=== PATIENT | male | born 1940 | race Caucasian/White ===

== ENCOUNTER 2017-05-25 06:25 | Inpatient (IN) | payer MEDICARE ==
--- NOTE | 2017-05-23 09:48 | HP ---
HISTORY OF PRESENT ILLNESS: Ms. Syed is a 77-year-old male that presents with low back pain that ra diates into the right buttocks. He has had weakness in the right EHL compared to the left side and h as had circumferential numbness up to his mid calf and below the knee. He is unable to walk more eagle n 100 yards without having to sit down due to the pain in his low back and his legs that develops whe n he is standing and walking. The pain is made worse with walking and somewhat better with sitting d own and bending forward. He has had a pacemaker and defibrillator placed. He has had [address] Delgado and completed physical therapy that did not seem to help his symptoms. REVIEW OF SYSTEMS: Ten-point review of systems completed and is otherwise negative unless stated in the above HPI. PAST MEDICAL HISTORY: Cardiac history. PAST SURGICAL HISTORY: Heart valve transplant 2017. HOSPITALIZATIONS: Surgeries. FAMILY HISTORY: Father is . Mother is . Siblings are . SOCIAL HISTORY: The patient is a former smoker, 1 pack per day for 6 years. He is and has 4 children. MEDICATIONS: Taking Plavix 75 mg 1 tablet orally once a day. Medication list reviewed with the doug ent. ALLERGIES: No known drug allergies. PHYSICAL EXAMINATION: HEENT: Normocephalic, atraumatic. Hearing intact. Moist mucous membranes. Trachea is midline. EYES: Pupils are equal and reactive to light. Extraocular muscles are intact. Sclerae is white, no nicteric. PSYCHIATRIC: Normal mood and affect. CARDIOVASCULAR/PULMONARY: No cyanosis or clubbing noted. Intact pedal pulses bilaterally. MUSCULOSKELETAL: 5/5 strength in bilateral iliopsoas, quadriceps, hamstrings, right tibialis anterio r and extensor hallucis longus. Sensory deficits, worse in the right L5 dermatome. He is tender to palpation in the midline lumbar spine. RESPIRATORY: Even respirations, good effort in all lung mondragon, sound clear with no wheezing or crac kles. NEUROLOGIC: Gait and station are normal. Motor exam: There is normal strength in the iliopsoas, qu adriceps, hamstrings, EHL, gastroc and toe flexors. Sensory exam is in stocking distribution, senso ry loss, both legs. IMAGING: Myelogram stenosis, severe at L2-L5 and there is grade I-II slip at L4-5. There is right L 5 pars fractures, old, but no sign of instability there. Flexion, extension, no instability at L5-S1, motion about 1 mm at L4-L5. IMPRESSION: 1. Neurogenic claudication. 2. Spondylolisthesis of the lumbar region. 3. Osseous and or sublux stenosis of intervertebral foramina of the lumbar region. 4. 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 PLAN: We talked about surgery is a more permanent treatment for his stenosis and subluxation. Dr. Summer ivey offered a laminectomy L2-L5 with TLIF at L4-L5 and we may need to add TLIF at L5-S1 if there and significant intraoperative instability from the pars fracture. Informed consent was given. We discussed the indications, risks, benefits, alternatives, and expected results from surgery. The ris ks discussed included, but were not limited to bleeding, infection, CSF leak, nerve damage, weakness, incontinence, cauda equina injury, arachnoiditis, paralysis, ventilator dependence, wheelchair depen dence, loss of vision, hardware misplacement, cardiopulmonary complications of anesthesia or . Long-term complications discussed included, but were not limited to degeneration of surrounding disks and future surgery. He understands the risk and is willing to proceed with the surgery.
[2017-05-25 07:50] LABS: #Eosinphils 0.2 thou/uL (0.0-0.7); #Lymphocytes 0.7 thou/uL (1.20-3.40); #Monocytes 0.5 thou/uL (0.11-0.59); %Basophils 0.5 % (0.0-1.0); %Eosinophils 2.9 % (0.0-10.0); %Lymphocytes 10.3 % (21.0-51.0); %Monocytes 8.2 % (0.0-10.0); Hematocrit 37.5 % (42.0-52.0); Mean Platelet Volume 7.3 fL (7.4-10.4); Red Blood Cell (RBC) Count 3.86 mill/uL (4.70-6.10); White Blood Cell (WBC) Count 6.4 thou/uL (4.8-10.8)
[2017-05-25 07:57] LABS: PTT 29.2 SEC (22.9-36.1)
[2017-05-25 07:58] LABS: Prothrombin Time 13.9 SEC (12.0-14.7)
[2017-05-25 08:16] LABS: Anion Gap 11 mmol/L (10-20); BUN (Urea Nitrogen) 22 mg/dL (8.4-25.7); Calc. Creatinine Clearance 73 mL/min (70-130); Calcium 9.3 mg/dL (7.8-10.44); Carbon Dioxide 21 mmol/L (23-31); Chloride 110 mmol/L (98-107); Estimated GFR-MDRD 71
[2017-05-25] MEDS ORDERED: Sodium Chloride 0.9% 20 ML ONE (08:27)
[2017-05-25] MEDS ORDERED: Thrombin 5000 UNITS/5 ML VIAL ONE (08:27)
[2017-05-25] MEDS ORDERED: Bupivacaine/Epinephrine 0.25% 30 ML VIAL ONE (08:27)
[2017-05-25] MEDS ORDERED: CEFAZOLIN/Water 2 GM/20 ML SYRINGE ONE (09:10)
[2017-05-25] MEDS ORDERED: Phenylephrine 10 MG/NS 250 ML 250 ML ONE (09:11)
[2017-05-25] MEDS ORDERED: Albumin 5% 500 ML ONE (09:11)
[2017-05-25] MEDS ORDERED: Fentanyl 250 MCG/5 ML VIAL ONE (09:19)
[2017-05-25] MEDS ORDERED: HYDROmorphone 2 MG/ML VIAL SLOW IVP PRN (11:51)
[2017-05-25] MEDS ORDERED: Morphine Sulfate 2 MG/ML SYRINGE SLOW IVP PRN (11:51)
[2017-05-25] MEDS ORDERED: Promethazine HCl 25 MG/ML VIAL IM PRN (11:51)
[2017-05-25] MEDS ORDERED: Promethazine HCl 25 MG/ML VIAL SLOW IVP PRN (11:51)
[2017-05-25] MEDS ORDERED: Meperidine HCl/PF 25 MG/ML VIAL SLOW IVP PRN (11:51)
[2017-05-25] MEDS ORDERED: Ondansetron HCl/PF 4 MG/2 ML Vial IVP PRN (11:51)
[2017-05-25] MEDS ORDERED: Fentanyl 100 MCG/2 ML VIAL ONE (12:33)
[2017-05-25] MEDS ORDERED: Morphine 4 MG/ML VIAL SLOW IVP PRN (15:15)
[2017-05-25] MEDS ORDERED: Morphine 2 mg/2ml in 0.9% NaCl PF SYRINGE SLOW IVP PRN (15:15)
[2017-05-25] MEDS ORDERED: Lidocaine 1% PF 5 ML VIAL ONE (15:30)
[2017-05-25] MEDS ORDERED: Metoclopramide HCl 10 MG/2 ML VIAL ONE (15:30)
[2017-05-25] MEDS ORDERED: Dexamethasone 20 MG/5 ML VIAL ONE (15:30)
[2017-05-25] MEDS ORDERED: Vecuronium 10 MG VIAL ONE (15:30)
[2017-05-25] MEDS ORDERED: Ondansetron HCl/PF 4 MG/2 ML Vial ONE (15:30)
[2017-05-25] MEDS ORDERED: Propofol 200 MG/20 ML VIAL ONE (15:30)
[2017-05-25] MEDS ORDERED: Non-Formulary Item 1 EACH (Sitagliptin Phos/Metformin Hcl [Janumet] 1 TABLET) PO SCH (17:00)
[2017-05-25] MEDS: Sodium Chloride 0.9% 1,000 ML IV SCH (17:24)
[2017-05-25 17:56] VITALS: BMI 27.3
[2017-05-25] MEDS ORDERED: CEFAZOLIN/Water 2 GM/20 ML SYRINGE SLOW IVP SCH (18:00)
[2017-05-25] MEDS: metFORMIN 500 MG TAB PO SCH (18:03)
[2017-05-25] MEDS: Alogliptin Benzoate 6.25 MG TABLET PO SCH (18:03)
[2017-05-25] MEDS: Acetaminophen/Codeine 30-300mg Tablet PO PRN (18:04)
--- NOTE | 2017-05-25 18:10 | ULT ---
ULTRASOUND WITH DOPPLER DUPLEX VENOUS LOWER EXTREMITY BILATERAL 05/25/17 CPT: 16474 ICD-10-PCS: B54D HISTORY: Edema, recent surgery. TECHNIQUE: Color flow Doppler, spectral waveform analysis of pulsed Doppler, and marie-scale imaging with magali arthur and augmentation, were used to evaluate the bilateral common femoral, femoral, popliteal, social worker delinquency prevention ior tibial, and superficial femoral, veins; and the proximal portions of the profunda femoral and gre ater saphenous, veins. FINDINGS: Appropriate compressibility and flow within the imaged deep vein system of each lower extremity. IMPRESSION: No DVT. POS: GARRY
--- NOTE | 2017-05-25 18:53 | OP ---
DATE OF SURGERY: 05/25/2017 SURGEON: Jose Schneider M.D. PRIMARY HEALTH CARE NURSE: Ambrocio Pineda PA-C. PREOPERATIVE INDICATION: Treat pain, prevent neurological deterioration. PREOPERATIVE DIAGNOSES: Multilevel lumbar stenosis, lumbar spondylolisthesis L4-L5. POSTOPERATIVE DIAGNOSES: Multilevel lumbar stenosis, lumbar spondylolisthesis L4-L5. OPERATIVE PROCEDURE: Decompressive laminectomy, medial facetectomy, foraminotomy at L2-L3, L3-L4, L4 -L5, transforaminal lumbar interbody arthrodesis L4-L5, placement of intervertebral biomechanical dev ice L4-L5, pedicle screw and camryn instrumentation L4-L5, local morselized autograft, morselized allogr aft, posterolateral arthrodesis L4-L5. PREOPERATIVE MEDICATION: Ancef 2 grams IV. DRAIN NUMBER: Zero. DRAIN TYPE: None. OPERATIVE DICTATION: The patient was brought to the operating room. General endotracheal anesthesia was induced. The patient was positioned prone on the Orville frame with appropriate padding for the chest and hips. A lateral fluoro radiograph was used to plan our incision. The lumbar skin was francesco rilely prepped and draped. We opened with a 10 blade knife and controlled bleeding with bipolar and monopolar cautery. We used monopolar cautery to dissect through the subcutaneous tissues to the thor acodorsal fascia. We incised the fascia in the midline and reflected the paraspinal muscles off the spinous process and lamina of L2, L3, L4, and L5. A self-retaining retractor was placed. A lateral fluoro radiograph confirmed the levels upon which we were operating. We then carried our dissection over the L3-L4 and L4-L5 facets to expose the L4 and L5 transverse processes bilaterally. We placed a clamp on the L5 spinous process and 1 on the sacrum and tried to move these independently. They ap peared solidly fused. There was absolutely no motion on the right where pars defect was noted on the CT scan. This level of stability was reassuring that instrumentation would not be needed at lumbosa cral interspace. We brought an Adson rongeur into the field. We removed the spinous process of L2, L3, L4 and the superior portion of L5. We thinned the laminae and then used a Kerrison rongeur to fa shion a laminectomy from the top of L5 to the L2 pedicles. We widened our laminectomy defect until w e were flush with the pedicles at L2, L3, L4, and L5. We undermined the lateral recesses before perf orming medial facetectomies. With the exiting nerve roots, we performed foraminotomies. This was do ne over the L2, L3, L4, and L5 nerve roots. With our decompression secured, we turned our attention to arthrodesis at the L4-L5 interspace for spondylolisthesis. We removed the entire facet joint at L 4-L5 on the right side. Through this facetectomy, we widely opened the foramen. We accessed the int ervertebral disk and incised it with an 11 blade knife. I removed disk contents using curettes and r ongeurs, and then prepared the endplates for grafting. We measured the height of the interspace to 1 1 mm. With curets we removed the cartilaginous cap from the endplates. Our laminectomy bone was car efully morcellized on the back table after soft tissue was removed and this morselized bone was added to demineralized bone matrix as our fusion substrate. Substrate was packed into an 11 mm PEEK graft . The PEEK graft was advanced into the L4-L5 interspace under radiographic guidance to the appropria te depth. We turned our attention to pedicle screw instrumentation. Using bony anatomic landmarks, palpation of the medial portion of the pedicles and a lateral fluoro r adiograph as a guide, we chose entry points for L4 and L5 pedicles bilaterally. We drilled the entry points and used the bone awl to find our trajectory through the pedicles into the vertebral bodies. We tapped the trajectories. We probed the trajectories and found them completely encased in bone. A 6.5 mm diameter screws were placed. With the four pedicle screws in place, we generated 360 degree image set with isocenter C-arm. This confirmed adequate positioning of our pedicle screw instrument ation. We irrigated copiously with bacitracin irrigation. We then decorticated the transverse proce sses of L4 and L5 bilaterally. Over the decorticated bone, we left demineralized bone matrix and mor selized autograft as our posterolateral fusion substrate. We made sure one more time that the all 4 nerve roots were still decompressed in the L4-L5 foramina. Rods were placed into the screw heads and caps were tightened over the rods. We used gentle compression across the interspace to keep our int erbody graft in place. Using a fjmzyl-qiobdqz-oiaytb mechanism, we ensured adequate tightness. We r econfirmed our adequate foraminal decompression. Vancomycin powder was added to the wound and we shobha sed the wound in anatomic layers. We applied a sterile dressing. This was a clean case and no conta mination.
[2017-05-25] MEDS: Carvedilol 3.125 MG TAB PO SCH (20:39)
[2017-05-25] MEDS: CEFAZOLIN/Water 2 GM/20 ML SYRINGE SLOW IVP SCH (20:41)
[2017-05-25] MEDS: Cyclobenzaprine 10 MG TAB PO PRN (20:41)
[2017-05-25] MEDS: Lisinopril 5 MG TAB PO SCH (20:43)
[2017-05-26] MEDS: CEFAZOLIN/Water 2 GM/20 ML SYRINGE SLOW IVP SCH (04:25)
[2017-05-26] MEDS: Sodium Chloride 0.9% 1,000 ML IV SCH ×2 (04:26→17:04)
[2017-05-26] MEDS: Carvedilol 3.125 MG TAB PO SCH ×2 (08:22→20:06)
[2017-05-26] MEDS: Lisinopril 5 MG TAB PO SCH ×2 (08:23→20:07)
[2017-05-26] MEDS: metFORMIN 500 MG TAB PO SCH ×2 (08:37→16:58)
[2017-05-26] MEDS: Alogliptin Benzoate 6.25 MG TABLET PO SCH ×2 (08:37→16:58)
[2017-05-26] MEDS: Acetaminophen/Codeine 30-300mg Tablet PO PRN (08:40)
--- NOTE | 2017-05-26 12:07 | PRG ---
DATE OF SERVICE: 05/26/2017 SUBJECTIVE: Mr. Syed is postoperative day #1 from lumbar decompression and fusion. He states his l eg pain has certainly improved compared to before surgery and he has even worked with rehabilitation today. His strength is good in his lower extremities. An ultrasound of the lower extremities is neg ative for DVT. We will continue to work towards postoperative recovery.
[2017-05-26] MEDS: Cyclobenzaprine 10 MG TAB PO PRN ×2 (16:58→23:21)
[2017-05-27] MEDS: Acetaminophen/Codeine 30-300mg Tablet PO PRN ×3 (05:59→17:04)
[2017-05-27] MEDS: Sodium Chloride 0.9% 1,000 ML IV SCH ×2 (06:00→18:27)
[2017-05-27] MEDS: Alogliptin Benzoate 6.25 MG TABLET PO SCH ×2 (08:39→17:17)
[2017-05-27] MEDS: metFORMIN 500 MG TAB PO SCH ×2 (08:39→17:17)
[2017-05-27] MEDS: Carvedilol 3.125 MG TAB PO SCH ×2 (08:40→21:09)
[2017-05-27] MEDS: Lisinopril 5 MG TAB PO SCH ×2 (08:40→20:45)
[2017-05-27] MEDS ORDERED: Dextrose 5% in Water 1,000 ML IV PRN (12:44)
[2017-05-27] MEDS ORDERED: HumaLOG 300 UNITS/3 ML VIAL SC PRN (12:44)
[2017-05-27] MEDS ORDERED: Dextrose 50% Abboject 50 ML SYRINGE SLOW IVP PRN (12:44)
--- NOTE | 2017-05-27 13:02 | PRG ---
DATE OF SERVICE: 05/27/2017 This is 50 minute subsequent inpatient progress note. SUBJECTIVE: Mr. Syed is now postoperative day #2 having undergone posterior lumbar fusion with Dr. Schneider. The patient states he is doing well postoperatively. He states that he has been up walki ng some. His pain is controlled with oral medications. He does occasionally have some spasms onto t he left hip. He has been tolerating a diet and has been voiding. The patient remains at neurologic baseline with good strength in the bilateral lower extremities and has had no issues with his incisio n according to our nursing staff. The patient continues to improve. His issue now remains with disc harge planning. Case management has been ordered. The patient would like to go to care home [facility] in [place]. We will await arrangements for this. I have consulted medical services regar ding patient's blood sugars and they have remained relatively stable. Please call with any questions or changes in patient's neurologic status. Otherwise, Dr. Schneider will return in the morning and again we are waiting for discharge planning.
[2017-05-27] MEDS: HumaLOG 300 UNITS/3 ML VIAL SC PRN (15:14)
--- NOTE | 2017-05-27 15:36 | PDOC.PN ---
- Subjective Encounter Start Date: 05/27/17 Encounter Start Time: 15:34 Subjective: feels well. no muscle weakness or paraesthesias -: s/p Lumbar lamniectomy. -: IM team consulted for medical management of DM2 - Objective MAR Reviewed: Yes Vital Signs & Weight: Vital Signs (12 hours) Temp Pulse Resp BP BP Pulse Ox 05/27/17 12:10 98.5 F 70 16 100/60 96 05/27/17 08:40 75 111/58 L 05/27/17 08:10 98.3 F 71 18 115/57 L 97 05/27/17 07:15 98.8 F 75 16 05/27/17 04:29 98.8 F 75 16 111/58 L 96 Weight Weight 185 lb I&O: 05/26/17 05/27/17 05/28/17 06:59 06:59 06:59 Intake Total 1150 2650 240 Output Total 550 875 Balance 600 1775 240 Result Diagrams: 05/25/17 07:43 05/25/17 07:43 Additional Labs: Accuchecks 05/27/17 05/27/17 05/26/17 11:17 05:45 20:23 POC Glucose 169 H 154 H 209 H Phys Exam - Physical Examination Constitutional: NAD HEENT: PERRLA, moist MMs, sclera anicteric, oral pharynx no lesions Neck: no nodes, no JVD, supple, full ROM Respiratory: no wheezing, no rales, no rhonchi, wheezing present, clear to auscultation bilateral Cardiovascular: RRR, no significant murmur Gastrointestinal: soft, non-tender, no distention, positive bowel sounds Musculoskeletal: no edema, pulses present Neurological: non-focal, normal sensation, moves all 4 limbs Psychiatric: normal affect, A&O x 3 Skin: no rash Dx/Plan (1) DM2 (diabetes mellitus, type 2) Status: Chronic Qualifiers: Diabetes mellitus complication status: with hyperglycemia Diabetes mellitus penitentiary insulin use: without penitentiary use Qualified Code(s): E11.65 - Type 2 diabetes mellitus with hyperglycemia (2) CAD (coronary artery disease) Code(s): I25.10 - ATHSCL HEART DISEASE OF [place] CORONARY ARTERY W/O ANG PCTRS Status: Chronic Comment: s/p CABG and then cardiac stenting (3) S/P AVR (aortic valve replacement) Code(s): Z95.2 - PRESENCE OF PROSTHETIC HEART VALVE Status: Chronic Comment : Bioprosthetic per patient (4) S/P lumbar laminectomy Code(s): Z98.890 - OTHER SPECIFIED POSTPROCEDURAL STATES Status: Acute (5) Cardiomyopathy Code(s): I42.9 - CARDIOMYOPATHY, UNSPECIFIED Status: Chronic Comment: s/p AICD per patient - Plan respiratory therapy, incentive spirometry, out of bed/ambulate, DVT proph w/SCDs Add Insulin sliding scale as blood sugar still high despite Janumet.Accuche -: pt requesting regular diet.will change.Pt made awarre of hyperglycemia risk -: cont home meds as started by primary team.Hemodynamically stable. -: check labs in am. -: IM team will follow * . Review of Systems - Review of Systems Constitutional: negative: Fever, Chills, Sweats, Weakness, Malaise, Other ENT: negative: Ear Pain, Ear Discharge, Nose Pain, Nose Discharge, Nose Congestion, Mouth Pain, Mouth Swelling, Throat Pain, Throat Swelling, Other Respiratory: negative: Cough, Dry, Shortness of Breath, Hemoptysis, SOB with Excertion, Pleuritic Pain, Sputum, Wheezing Cardiovascular: negative: Chest Pain, Palpitations, Orthopnea, Paroxysmal Noc. Dyspnea, Edema, Light Headedness, Other Gastrointestinal: negative: Nausea, Vomiting, Abdominal Pain, Diarrhea, Constipation, Melena, Hematochezia, Other Genitourinary: negative: Dysuria, Frequency, Incontinence, Hematuria, Retention , Other Musculoskeletal: negative: Neck Pain, Shoulder Pain, Arm Pain, Back Pain, Hand Pain, Leg Pain, Foot Pain, Other Neurological: negative: Weakness, Numbness, Incoordination, Change in Speech, Confusion, Seizures, Other - Medications/Allergies Allergies/Adverse Reactions: Allergies Allergy/AdvReac Type Severity Reaction Status Date / Time diphenhydramine Allergy mood Verified 05/24/17 13:05 [From Benadryl] changes [id number] Reductase Allergy hives, Verified 05/24/17 13:05 Inhibitor itching Medications: Current Medications Acetaminophen/Codeine Phosphate (Tylenol #3) 1 tab PO Q3H PRN PRN Reason: Mild Pain (1-3) Last Admin: 05/27/17 05:59 Dose: 1 tab Acetaminophen/Codeine Phosphate (Tylenol #3) 2 tab PO Q3H PRN PRN Reason: Moderate Pain (4-6) Last Admin: 05/27/17 09:35 Dose: 2 tab Alogliptin Benzoate (Alogliptin) 12.5 mg PO BID-[facility] Last Admin: 05/27/17 08:39 Dose: 12.5 mg Amiodarone HCl (Cordarone) 200 mg PO QAM [facility] Last Admin: 05/27/17 08:39 Dose: 200 mg Carvedilol (Coreg) 3.125 mg PO BID [facility] Last Admin: 05/27/17 08:40 Dose: 3.125 mg Cyclobenzaprine HCl (Flexeril) 10 mg PO Q8H PRN PRN Reason: Muscle Spasm Last Admin: 05/26/17 23:21 Dose: 10 mg Dextrose/Water (Dextrose 50%) 25 gm SLOW IVP PRN PRN PRN Reason: Hypoglycemia Glucagon (Glucagon) 1 mg IM PRN PRN PRN Reason: Hypoglycemia Sodium Chloride (Normal Saline 0.9%) 1,000 mls @ 75 mls/hr IV .[id number] [facility] Last Admin: 05/27/17 06:00 Dose: Not Given Dextrose/Water (D5w) 1,000 mls @ 0 mls/hr IV .Q0M PRN; As Directed PRN Reason: Hypoglycemia Insulin Human Lispro (Humalog) 0 units SC .MODERATE SLIDING SC PRN PRN Reason: Moderate Correctional Scale Last Admin: 05/27/17 15:14 Dose: 2 unit Insulin Human Lispro (Humalog) 0 units SC .BEDTIME SLIDING SC PRN PRN Reason: Bedtime Correctional Scale Lisinopril (Zestril) 5 mg PO BID [facility] Last Admin: 05/27/17 08:40 Dose: 5 mg [facility] ([facility]uc[facility]) [facility] Last Admin: 05/27/17 08:39 Dose: 1,000 mg Morphine Sulfate (Morphine) 4 mg SLOW IVP Q1H PRN PRN Reason: Severe Breakthrough Pain Morphine Sulfate/Sodium Chloride (Morphine 0.9% Nacl Pf 2 Mg/2ml) 2 mg SLOW IVP Q1H PRN PRN Reason: Moderate Breakthrough Pain Pantoprazole Sodium (Protonix) 40 mg PO DAILY [facility] Last Admin: 05/27/17 08:41 Dose: 40 mg Sodium Chloride (Flush - Normal Saline) 10 ml IVF PRN PRN PRN Reason: Saline Flush Last Admin: 05/26/17 04:25 Dose: 10 ml History of Present Illnes - History of Present Illness Reason for Visit: Back pain - Past Medical History Cardiac: CAD, HTN, Aortic stenosis Endocrine: Diabetes - Past Surgical History Past Surgical History: CABG, Other (AV replacement.cardiac stent) - Past Family History Family History: CAD, DM - Past Social History Smoke: No Alcohol: None Drugs: None Lives: With Family
[2017-05-28 05:47] LABS: Hematocrit 25.4 % (42.0-52.0)
[2017-05-28 06:10] LABS: Anion Gap 8 mmol/L (10-20); BUN (Urea Nitrogen) 15 mg/dL (8.4-25.7); Calc. Creatinine Clearance 85 mL/min (70-130); Calcium 8.2 mg/dL (7.8-10.44); Carbon Dioxide 25 mmol/L (23-31); Chloride 106 mmol/L (98-107); Estimated GFR-MDRD 82
--- NOTE | 2017-05-28 07:04 | PRG ---
DATE OF SERVICE: 05/28/2017 Mr. Syed is 3 days out from decompression fusion lumbar spine. He had multilevel stenosis and spond ylolisthesis. The spondylolisthesis is fixed. He had a small pars fracture below the spondylolisthe sis at L5 which was unilateral. This did not move whatsoever in the operating room and was quite luis id. Since surgery, the leg pain is gone. He is up with his physical therapist and ambulating. His goal for after discharges to go to a half-way in [place], [place] and arrangements are being made for that, hopefully can happen today. We will see him back in 2 week followup. I went over wound care and brace use.
--- NOTE | 2017-05-28 07:07 | PRG ---
DATE OF SERVICE: 05/28/2017 Mr. Syed is a 76-year-old male who is status post a lumbar laminectomy and L4-L5 fusion. Over the there have been no acute events. He has been working with physical therapy and Social Work is on setting up outpatient rehab at [facility]. This morning his hemoglobin is 8.5, adam tocrit is 25.4. He feels like he has good strength in his legs bilaterally and his back pain has got ten better from preoperatively. He is able to walk with physical therapy 3 times a day and tolerate a regular diet. His pain is well controlled with oral pain medication. I sent a MOT today and trans port will be set up to be transported to inpatient rehabilitation. If there are any further questions, please feel free to contact Neurosurgery.
[2017-05-28] MEDS: Alogliptin Benzoate 6.25 MG TABLET PO SCH ×2 (08:16→16:46)
[2017-05-28] MEDS: metFORMIN 500 MG TAB PO SCH ×2 (08:17→16:46)
[2017-05-28] MEDS: Carvedilol 3.125 MG TAB PO SCH ×2 (08:18→21:27)
[2017-05-28] MEDS: Lisinopril 5 MG TAB PO SCH ×2 (08:18→21:27)
[2017-05-28] MEDS: Sodium Chloride 0.9% 1,000 ML IV SCH ×2 (09:29→21:49)
[2017-05-28] MEDS: Cyclobenzaprine 10 MG TAB PO PRN ×2 (11:37→21:34)
[2017-05-28] MEDS: Acetaminophen/Codeine 30-300mg Tablet PO PRN ×2 (11:37→22:57)
[2017-05-28] MEDS: HumaLOG 300 UNITS/3 ML VIAL SC PRN (11:37)
[2017-05-28] MEDS: Megestrol Acetate 40 MG TAB PO SCH ×3 (13:51→21:43)
--- NOTE | 2017-05-28 14:22 | PDOC.PN ---
- Subjective Encounter Start Date: 05/28/17 Encounter Start Time: 14:21 Subjective: feels weak,tired.poor appetite - Objective MAR Reviewed: Yes Vital Signs & Weight: Vital Signs (12 hours) Temp Pulse Resp BP BP Pulse Ox 05/28/17 11:49 98.1 F 89 16 131/75 98 05/28/17 08:18 66 120/71 05/28/17 08:00 98.6 F 66 14 120/71 98 05/28/17 07:00 98.8 F 66 17 05/28/17 05:00 98.8 F 66 17 115/62 97 Weight Weight 185 lb I&O: 05/27/17 05/28/17 05/29/17 06:59 06:59 06:59 Intake Total 2650 1870 Output Total 875 930 Balance 1775 940 Result Diagrams: 05/28/17 05:09 05/28/17 05:09 Additional Labs: Accuchecks 05/28/17 05/28/17 05/27/17 11:35 05:17 20:19 POC Glucose 170 H 122 H 172 H 05/27/17 17:46 POC Glucose 117 H Laboratory Tests 05/25/17 05/28/17 07:43 05:09 Hgb 12.5 L 8.5 L Phys Exam - Physical Examination Constitutional: NAD HEENT: PERRLA, moist MMs, sclera anicteric, oral pharynx no lesions Neck: no nodes, no JVD, supple, full ROM Respiratory: no wheezing, no rales, no rhonchi, clear to auscultation bilateral Cardiovascular: RRR, no significant murmur Gastrointestinal: soft, non-tender, no distention, positive bowel sounds Musculoskeletal: no edema, pulses present Neurological: non-focal, normal sensation, moves all 4 limbs Psychiatric: normal affect, A&O x 3 Dx/Plan (1) Acute blood loss as cause of postoperative anemia Code(s): D62 - ACUTE POSTHEMORRHAGIC ANEMIA Status: Acute (2) DM2 (diabetes mellitus, type 2) Status: Chronic Qualifiers: Diabetes mellitus complication status: with hyperglycemia Diabetes mellitus halfway insulin use: without halfway use Qualified Code(s): E11.65 - Type 2 diabetes mellitus with hyperglycemia (3) CAD (coronary artery disease) Code(s): I25.10 - ATHSCL HEART DISEASE OF [place] CORONARY ARTERY W/O ANG PCTRS Status: Chronic Comment: s/p CABG and then cardiac stenting (4) S/P AVR (aortic valve replacement) Code(s): Z95.2 - PRESENCE OF PROSTHETIC HEART VALVE Status: Chronic Comment : Bioprosthetic per patient (5) S/P lumbar laminectomy Code(s): Z98.890 - OTHER SPECIFIED POSTPROCEDURAL STATES Status: Acute (6) Cardiomyopathy Code(s): I42.9 - CARDIOMYOPATHY, UNSPECIFIED Status: Chronic Comment: s/p AICD per patient - Plan plan discussed w/ family, PT/OT, social media director, DVT proph w/SCDs Transfuse 1 unit PRBC with 4 point drop in Hb & pt being symptomatic -: monitor H/H. no overt bleeding -: Add megace.add Ensure. -: recheck labs in am. * . Review of Systems - Review of Systems Constitutional: Weakness, Malaise. negative: Fever, Chills, Sweats, Other Respiratory: negative: Cough, Dry, Shortness of Breath, Hemoptysis, SOB with Excertion, Pleuritic Pain, Sputum, Wheezing Cardiovascular: negative: Chest Pain, Palpitations, Orthopnea, Paroxysmal Noc. Dyspnea, Edema, Light Headedness, Other Gastrointestinal: negative: Nausea, Vomiting, Abdominal Pain, Diarrhea, Constipation, Melena, Hematochezia, Other Genitourinary: negative: Dysuria, Frequency, Incontinence, Hematuria, Retention , Other Musculoskeletal: negative: Neck Pain, Shoulder Pain, Arm Pain, Back Pain, Hand Pain, Leg Pain, Foot Pain, Other Neurological: negative: Weakness, Numbness, Incoordination, Change in Speech, Confusion, Seizures, Other - Medications/Allergies Allergies/Adverse Reactions: Allergies Allergy/AdvReac Type Severity Reaction Status Date / Time diphenhydramine Allergy mood Verified 05/24/17 13:05 [From Benadryl] changes Kuvtksf-[id number]-Dzx Reductase Allergy hives, Verified 05/24/17 13:05 Inhibitor itching Medications: Current Medications Acetaminophen/Codeine Phosphate (Tylenol #3) 1 tab PO Q3H PRN PRN Reason: Mild Pain (1-3) Last Admin: 05/27/17 17:04 Dose: 1 tab Acetaminophen/Codeine Phosphate (Tylenol #3) 2 tab PO Q3H PRN PRN Reason: Moderate Pain (4-6) Last Admin: 05/28/17 11:37 Dose: 2 tab Alogliptin Benzoate (Alogliptin) 12.5 mg PO BID-[facility] Last Admin: 05/28/17 08:16 Dose: 12.5 mg Amiodarone HCl (Cordarone) 200 mg PO QAM [facility] Last Admin: 05/28/17 08:17 Dose: 200 mg Carvedilol (Coreg) 3.125 mg PO BID [facility] Last Admin: 05/28/17 08:18 Dose: Not Given Cyclobenzaprine HCl (Flexeril) 10 mg PO Q8H PRN PRN Reason: Muscle Spasm Last Admin: 05/28/17 11:37 Dose: 10 mg Dextrose/Water (Dextrose 50%) 25 gm SLOW IVP PRN PRN PRN Reason: Hypoglycemia Glucagon (Glucagon) 1 mg IM PRN PRN PRN Reason: Hypoglycemia Sodium Chloride (Normal Saline 0.9%) 1,000 mls @ 75 mls/hr IV .[id number] [facility] Last Admin: 05/28/17 09:29 Dose: Not Given Dextrose/Water (D5w) 1,000 mls @ 0 mls/hr IV .Q0M PRN; As Directed PRN Reason: Hypoglycemia Insulin Human Lispro (Humalog) 0 units SC .MODERATE SLIDING SC PRN PRN Reason: Moderate Correctional Scale Last Admin: 05/28/17 11:37 Dose: 2 unit Insulin Human Lispro (Humalog) 0 units SC .BEDTIME SLIDING SC PRN PRN Reason: Bedtime Correctional Scale Lisinopril (Zestril) 5 mg PO BID [facility] Last Admin: 05/28/17 08:18 Dose: Not Given Megestrol Acetate (Megace) 40 mg PO QID [facility] Last Admin: 05/28/17 13:51 Dose: 40 mg [facility] ([facility]) [facility] Last Admin: 05/28/17 08:17 Dose: 1,000 mg Morphine Sulfate (Morphine) 4 mg SLOW IVP Q1H PRN PRN Reason: Severe Breakthrough Pain Morphine Sulfate/Sodium Chloride (Morphine 0.9% Nacl Pf 2 Mg/2ml) 2 mg SLOW IVP Q1H PRN PRN Reason: Moderate Breakthrough Pain Pantoprazole Sodium (Protonix) 40 mg PO DAILY [facility] Last Admin: 05/28/17 08:18 Dose: 40 mg Sodium Chloride (Flush - Normal Saline) 10 ml IVF PRN PRN PRN Reason: Saline Flush Last Admin: 05/26/17 04:25 Dose: 10 ml
[2017-05-28 15:14] LABS: Oxyhemoglobin 97.7 % (94.0-97.0); Sodium 142 mmol/L (135-148)
[2017-05-29] MEDS: Acetaminophen/Codeine 30-300mg Tablet PO PRN ×2 (02:16→21:20)
--- NOTE | 2017-05-29 06:48 | PRG ---
DATE OF SERVICE: 05/29/2017 Mr. Syed is a 76-year-old male with a history of a lumbar laminectomy and TLIF. He has been doing w ell postoperatively and there have been no acute events. His legs have 5/5 strength bilaterally and the numbness and the radicular symptoms in his lower extremities are starting to resolve. He was abl e to walk yesterday with physical therapy 2 times, the first time he made it about 168 feet and the n ext time he made it over 300 feet. He has been tolerating a regular diet, and his pain is well contr olled with oral pain medication. Case management has been working on discharge to [facility] in [facility]. A choice letter was sent yesterday and we are waiting on response from [facility]. From a allan rosurgical standpoint, he is stable and he can go at any time to rehab. This morning his incision is clean, dry, and intact. We will follow up with him in our office in 2 weeks for an incision check a nd symptoms check. If there are any further questions, please feel free to contact Neurosurgery.
--- NOTE | 2017-05-29 06:59 | PRG ---
DATE OF SERVICE: 05/29/2017 Mr. Cheri Syed is 4 days out from decompression and fusion lumbar spine. He worked with physical th tristan yesterday and walked up and down the hallway first time, went all the way around the entire sobia or. The second time he spent some time sitting. He is getting more comfortable on his legs. He wou ld benefit from more therapy. Towards that end, the patient and his are looking for placement of [facility] in [place] and i f arrangements can be made he can be transferred today.
[2017-05-29] MEDS: metFORMIN 500 MG TAB PO SCH ×2 (08:44→16:24)
[2017-05-29] MEDS: Alogliptin Benzoate 6.25 MG TABLET PO SCH ×2 (08:44→16:24)
[2017-05-29] MEDS: Lisinopril 5 MG TAB PO SCH ×2 (08:45→21:21)
[2017-05-29] MEDS: Carvedilol 3.125 MG TAB PO SCH ×2 (08:45→21:23)
[2017-05-29] MEDS: Megestrol Acetate 40 MG TAB PO SCH ×4 (08:46→21:20)
[2017-05-29 09:16] LABS: Mode OR ABG; Vent YES
[2017-05-29 09:38] LABS: Hematocrit 29.9 % (42.0-52.0)
[2017-05-29] MEDS: Sodium Chloride 0.9% 1,000 ML IV SCH ×2 (12:27→22:51)
[2017-05-29] MEDS: HumaLOG 300 UNITS/3 ML VIAL SC PRN (12:28)
--- NOTE | 2017-05-29 13:34 | PDOC.PN ---
- Subjective Encounter Start Date: 05/29/17 Encounter Start Time: 13:32 Subjective: feels better but still w poor appetite -: no nausea/vomiting.does not like food - Objective MAR Reviewed: Yes Vital Signs & Weight: Vital Signs (12 hours) Temp Pulse Resp BP BP Pulse Ox 05/29/17 08:45 59 L 116/67 05/29/17 07:40 98.1 F 59 L 18 116/67 97 05/29/17 07:15 98.1 F 59 L 18 05/29/17 04:00 97.7 F 96 16 127/65 95 Weight Weight 185 lb I&O: 05/28/17 05/29/17 05/30/17 06:59 06:59 06:59 Intake Total 1870 1670 Output Total 930 945 Balance 940 725 Result Diagrams: 05/29/17 09:24 05/28/17 05:09 Additional Labs: Accuchecks 05/29/17 05/29/17 05/28/17 11:12 05:26 19:52 POC Glucose 159 H 117 H 129 H 05/28/17 16:30 POC Glucose 114 H Laboratory Tests 05/25/17 05/28/17 05/29/17 07:43 05:09 09:24 Hgb 12.5 L 8.5 L 10.0 L Phys Exam - Physical Examination Constitutional: NAD HEENT: PERRLA, moist MMs, sclera anicteric, oral pharynx no lesions Neck: no nodes, no JVD, supple, full ROM Respiratory: no wheezing, no rales, no rhonchi, clear to auscultation bilateral Cardiovascular: RRR, no significant murmur, no rub, gallop Gastrointestinal: soft, non-tender, no distention, positive bowel sounds Musculoskeletal: no edema, pulses present Neurological: non-focal, normal sensation, moves all 4 limbs Psychiatric: normal affect, A&O x 3 Skin: no rash Dx/Plan (1) Acute blood loss as cause of postoperative anemia Code(s): D62 - ACUTE POSTHEMORRHAGIC ANEMIA Status: Acute Comment: s/p 1 unit PRBC (2) DM2 (diabetes mellitus, type 2) Status: Chronic Qualifiers: Diabetes mellitus complication status: with hyperglycemia Diabetes mellitus group home insulin use: without marine oil terminal superintendent use Qualified Code(s): E11.65 - Type 2 diabetes mellitus with hyperglycemia (3) CAD (coronary artery disease) Code(s): I25.10 - ATHSCL HEART DISEASE OF [place] CORONARY ARTERY W/O ANG PCTRS Status: Chronic Comment: s/p CABG and then cardiac stenting (4) S/P AVR (aortic valve replacement) Code(s): Z95.2 - PRESENCE OF PROSTHETIC HEART VALVE Status: Chronic Comment : Bioprosthetic per patient (5) S/P lumbar laminectomy Code(s): Z98.890 - OTHER SPECIFIED POSTPROCEDURAL STATES Status: Acute (6) Cardiomyopathy Code(s): I42.9 - CARDIOMYOPATHY, UNSPECIFIED Status: Chronic Comment: s/p AICD per patient - Plan respiratory therapy, incentive spirometry, out of bed/ambulate, DVT proph w/SCDs H/H improved.cont megace.ensure etc. -: May need Op GI eval if poor appetite persists. -: Ok to DC anytime form IM stand point.hemodynamically stable. -: will follow as long as remains in house * . Review of Systems - Review of Systems Constitutional: Malaise. negative: Fever, Chills, Sweats, Weakness, Other Respiratory: negative: Cough, Dry, Shortness of Breath, Hemoptysis, SOB with Excertion, Pleuritic Pain, Sputum, Wheezing Cardiovascular: negative: Chest Pain, Palpitations, Orthopnea, Paroxysmal Noc. Dyspnea, Edema, Light Headedness, Other Gastrointestinal: Other. negative: Nausea, Vomiting, Abdominal Pain, Diarrhea, Constipation, Melena, Hematochezia Genitourinary: negative: Dysuria, Frequency, Incontinence, Hematuria, Retention , Other Musculoskeletal: negative: Neck Pain, Shoulder Pain, Arm Pain, Back Pain, Hand Pain, Leg Pain, Foot Pain, Other Neurological: negative: Weakness, Numbness, Incoordination, Change in Speech, Confusion, Seizures, Other - Medications/Allergies Allergies/Adverse Reactions: Allergies Allergy/AdvReac Type Severity Reaction Status Date / Time diphenhydramine Allergy mood Verified 05/24/17 13:05 [From Benadryl] changes Oiqpxmw-Mfm-Yjr Reductase Allergy hives, Verified 05/24/17 13:05 Inhibitor itching Medications: Current Medications Acetaminophen/Codeine Phosphate (Tylenol #3) 1 tab PO Q3H PRN PRN Reason: Mild Pain (1-3) Last Admin: 05/29/17 02:16 Dose: 1 tab Acetaminophen/Codeine Phosphate (Tylenol #3) 2 tab PO Q3H PRN PRN Reason: Moderate Pain (4-6) Last Admin: 05/28/17 22:57 Dose: 2 tab Alogliptin Benzoate (Alogliptin) 12.5 mg PO BID-[facility] Last Admin: 05/29/17 08:44 Dose: 12.5 mg Amiodarone HCl (Cordarone) 200 mg PO QAM [facility] Last Admin: 05/29/17 08:44 Dose: 200 mg Carvedilol (Coreg) 3.125 mg PO BID [facility] Last Admin: 05/29/17 08:45 Dose: Not Given Cyclobenzaprine HCl (Flexeril) 10 mg PO Q8H PRN PRN Reason: Muscle Spasm Last Admin: 05/28/17 21:34 Dose: 10 mg Dextrose/Water (Dextrose 50%) 25 gm SLOW IVP PRN PRN PRN Reason: Hypoglycemia Glucagon (Glucagon) 1 mg IM PRN PRN PRN Reason: Hypoglycemia Sodium Chloride (Normal Saline 0.9%) 1,000 mls @ 75 mls/hr IV .[id number] [facility] Last Admin: 05/29/17 12:27 Dose: Not Given Dextrose/Water (D5w) 1,000 mls @ 0 mls/hr IV .Q0M PRN; As Directed PRN Reason: Hypoglycemia Insulin Human Lispro (Humalog) 0 units SC .MODERATE SLIDING SC PRN PRN Reason: Moderate Correctional Scale Last Admin: 05/29/17 12:28 Dose: 2 unit Insulin Human Lispro (Humalog) 0 units SC .BEDTIME SLIDING SC PRN PRN Reason: Bedtime Correctional Scale Lisinopril (Zestril) 5 mg PO BID [facility] Last Admin: 05/29/17 08:45 Dose: Not Given Megestrol Acetate (Megace) 40 mg PO QID [facility] Last Admin: 05/29/17 12:28 Dose: 40 mg Metformin HCl (Glucophage) 1,000 mg PO BID-[facility] Last Admin: 05/29/17 08:44 Dose: 1,000 mg Morphine Sulfate (Morphine) 4 mg SLOW IVP Q1H PRN PRN Reason: Severe Breakthrough Pain Morphine Sulfate/Sodium Chloride (Morphine 0.9% Nacl Pf 2 Mg/2ml) 2 mg SLOW IVP Q1H PRN PRN Reason: Moderate Breakthrough Pain Pantoprazole Sodium (Protonix) 40 mg PO DAILY [facility] Last Admin: 05/29/17 08:48 Dose: 40 mg Sodium Chloride (Flush - Normal Saline) 10 ml IVF PRN PRN PRN Reason: Saline Flush Last Admin: 05/26/17 04:25 Dose: 10 ml
[2017-05-29] MEDS: Cyclobenzaprine 10 MG TAB PO PRN (16:25)
[2017-05-30] MEDS: Cyclobenzaprine 10 MG TAB PO PRN ×2 (00:54→15:10)
[2017-05-30] MEDS: Acetaminophen/Codeine 30-300mg Tablet PO PRN ×2 (00:54→15:10)
--- NOTE | 2017-05-30 06:40 | PRG ---
DATE OF SERVICE: 05/30/2017 Mr. Syed is a 76-year-old male who I saw in his room this morning. Yesterday, he was able to ambula te with physical therapy 2 times around the unit. He also sat up a good portion of the day in his ch air. He has been able to tolerate a regular diet and his pain is well controlled with pain medicatio n. Overnight, there have been no acute events and the pain in his legs has resolved. He is very anx ious to go to rehab and start the rehabilitation process. So far he has been accepted to [facility] or rehab in [place]. However, he is waiting on his insurance company to approve this. His vital signs have been stable overnight. There are no new neurologic deficits on exam. Incision is clean, dry and intact. If there are any further questions, please feel free to contact Neurosurgery.
[2017-05-30] MEDS: Alogliptin Benzoate 6.25 MG TABLET PO SCH (08:35)
[2017-05-30] MEDS: Megestrol Acetate 40 MG TAB PO SCH ×2 (08:35→12:41)
[2017-05-30] MEDS: metFORMIN 500 MG TAB PO SCH (08:35)
[2017-05-30] MEDS: Lisinopril 5 MG TAB PO SCH (08:37)
[2017-05-30] MEDS: Carvedilol 3.125 MG TAB PO SCH (08:37)
[2017-05-30 12:41] VITALS: BP 124/72; TEMP 98
--- NOTE | 2017-05-30 14:29 | PRG ---
DATE OF SERVICE: 05/30/2017 I saw Mr. Syed early in the morning on rounds. He had reasonable intake yesterday and he is waiting for transfer to [facility] in [place], [place]. He is progressing with the help of physical therapy and his back and legs better each day. He is ready for discharge this yamile ing.
--- NOTE | 2017-05-30 14:53 | PDOC.PN ---
- Subjective Encounter Start Date: 05/30/17 Encounter Start Time: 14:51 Subjective: ate better today.no new complaints. -: walked around the floor twice .no pain in back - Objective MAR Reviewed: Yes Vital Signs & Weight: Vital Signs (12 hours) Temp Pulse Resp BP BP Pulse Ox 05/30/17 12:00 98.0 F 64 14 124/72 99 05/30/17 08:37 65 119/60 05/30/17 08:35 98.4 F 65 16 98 05/30/17 08:00 98.4 F 62 16 119/60 98 05/30/17 04:32 97.9 F 67 15 117/65 98 Weight Weight 185 lb I&O: 05/29/17 05/30/17 05/31/17 06:59 06:59 06:59 Intake Total 1670 600 240 Output Total 945 700 Balance 725 -100 240 Result Diagrams: 05/29/17 09:24 05/28/17 05:09 Additional Labs: Accuchecks 05/30/17 05/30/17 05/29/17 11:10 05:50 20:54 POC Glucose 141 H 112 H 156 H 05/29/17 15:41 POC Glucose 125 H Phys Exam - Physical Examination Constitutional: NAD HEENT: PERRLA, moist MMs, sclera anicteric, oral pharynx no lesions Neck: no nodes, no JVD, supple, full ROM Respiratory: no wheezing, no rales, no rhonchi, clear to auscultation bilateral Cardiovascular: RRR, no significant murmur, no rub, gallop Gastrointestinal: soft, non-tender, no distention, positive bowel sounds Musculoskeletal: no edema, pulses present Neurological: non-focal, normal sensation, moves all 4 limbs Psychiatric: normal affect, A&O x 3 Skin: no rash Dx/Plan (1) Acute blood loss as cause of postoperative anemia Code(s): D62 - ACUTE POSTHEMORRHAGIC ANEMIA Status: Resolved Comment: s/p 1 unit PRBC (2) DM2 (diabetes mellitus, type 2) Status: Chronic Qualifiers: Diabetes mellitus complication status: with hyperglycemia Diabetes mellitus terminal makeup operator insulin use: without skilled nursing use Qualified Code(s): E11.65 - Type 2 diabetes mellitus with hyperglycemia (3) CAD (coronary artery disease) Code(s): I25.10 - ATHSCL HEART DISEASE OF [place] CORONARY ARTERY W/O ANG PCTRS Status: Chronic Comment: s/p CABG and then cardiac stenting (4) S/P AVR (aortic valve replacement) Code(s): Z95.2 - PRESENCE OF PROSTHETIC HEART VALVE Status: Chronic Comment : Bioprosthetic per patient (5) S/P lumbar laminectomy Code(s): Z98.890 - OTHER SPECIFIED POSTPROCEDURAL STATES Status: Acute (6) Cardiomyopathy Code(s): I42.9 - CARDIOMYOPATHY, UNSPECIFIED Status: Chronic Comment: s/p AICD per patient - Plan cont megace.advised to follow up w GI as an OP if appetite doesn't improve -: cont meds as below. -: Okto Dc from Im stand point when accapeted to rehab -: will follow if stays in house * . Review of Systems - Review of Systems Constitutional: Weakness, Malaise. negative: Fever, Chills, Sweats, Other Respiratory: negative: Cough, Dry, Shortness of Breath, Hemoptysis, SOB with Excertion, Pleuritic Pain, Sputum, Wheezing Cardiovascular: negative: Chest Pain, Palpitations, Orthopnea, Paroxysmal Noc. Dyspnea, Edema, Light Headedness, Other Gastrointestinal: negative: Nausea, Vomiting, Abdominal Pain, Diarrhea, Constipation, Melena, Hematochezia, Other Genitourinary: negative: Dysuria, Frequency, Incontinence, Hematuria, Retention , Other Musculoskeletal: negative: Neck Pain, Shoulder Pain, Arm Pain, Back Pain, Hand Pain, Leg Pain, Foot Pain, Other Neurological: negative: Weakness, Numbness, Incoordination, Change in Speech, Confusion, Seizures, Other - Medications/Allergies Allergies/Adverse Reactions: Allergies Allergy/AdvReac Type Severity Reaction Status Date / Time diphenhydramine Allergy mood Verified 05/24/17 13:05 [From Benadryl] changes Orsfnxz-Eto-Gtw Reductase Allergy hives, Verified 05/24/17 13:05 Inhibitor itching Medications: Current Medications Acetaminophen/Codeine Phosphate (Tylenol #3) 1 tab PO Q3H PRN PRN Reason: Mild Pain (1-3) Last Admin: 05/29/17 02:16 Dose: 1 tab Acetaminophen/Codeine Phosphate (Tylenol #3) 2 tab PO Q3H PRN PRN Reason: Moderate Pain (4-6) Last Admin: 05/30/17 00:54 Dose: 2 tab Alogliptin [facility] Last Admin: 05/30/17 08:35 Dose: 12.5 mg Amiodarone HCl (Cordarone) 200 mg PO QAM [facility] Last Admin: 05/30/17 08:34 Dose: 200 mg Carvedilol (Coreg) 3.125 mg PO BID [facility] Last Admin: 05/30/17 08:37 Dose: Not Given Cyclobenzaprine HCl (Flexeril) 10 mg PO Q8H PRN PRN Reason: Muscle Spasm Last Admin: 05/30/17 00:54 Dose: 10 mg Dextrose/Water (Dextrose 50%) 25 gm SLOW IVP PRN PRN PRN Reason: Hypoglycemia Glucagon (Glucagon) 1 mg IM PRN PRN PRN Reason: Hypoglycemia Sodium Chloride (Normal Saline 0.9%) 1,000 mls @ 75 mls/hr IV .[id number] [facility] Last Admin: 05/29/17 22:51 Dose: Not Given Dextrose/Water (D5w) 1,000 mls @ 0 mls/hr IV .Q0M PRN; As Directed PRN Reason: Hypoglycemia Insulin Human Lispro (Humalog) 0 units SC .MODERATE SLIDING SC PRN PRN Reason: Moderate Correctional Scale Last Admin: 05/29/17 12:28 Dose: 2 unit Insulin Human Lispro (Humalog) 0 units SC .BEDTIME SLIDING SC PRN PRN Reason: Bedtime Correctional Scale Lisinopril (Zestril) 5 mg PO BID [facility] Last Admin: 05/30/17 08:37 Dose: Not Given Megestrol Acetate (Megace) 40 mg PO QID [facility] Last Admin: 05/30/17 12:41 Dose: 40 mg Metformin [facility] (Glucophage) [facility] Last Admin: 05/30/17 08:35 Dose: 1,000 mg Morphine Sulfate (Morphine) 4 mg SLOW IVP Q1H PRN PRN Reason: Severe Breakthrough Pain Morphine Sulfate/Sodium Chloride (Morphine 0.9% Nacl Pf 2 Mg/2ml) 2 mg SLOW IVP Q1H PRN PRN Reason: Moderate Breakthrough Pain Pantoprazole Sodium (Protonix) 40 mg PO DAILY [facility] Last Admin: 05/30/17 08:34 Dose: 40 mg Sodium Chloride (Flush - Normal Saline) 10 ml IVF PRN PRN PRN Reason: Saline Flush Last Admin: 05/26/17 04:25 Dose: 10 ml
[2017-05-30] MEDS: Sodium Chloride 0.9% 1,000 ML IV SCH (15:11)
--- NOTE | 2017-05-31 06:52 | DIS ---
DATE OF ADMISSION: 05/25/2017 DATE OF DISCHARGE: 05/30/2017 ADMISSION DIAGNOSES: Multilevel lumbar stenosis and lumbar spondylolisthesis at L4-L5. DISCHARGE DIAGNOSES: Multilevel lumbar stenosis and spondylolisthesis at L4-L5; however, the radicu lar symptoms and neurogenic claudication symptoms in the lower extremities have resolved. [facility]EDURES: Decompressive laminectomy, medial facetectomy, and foraminotomy at L2-L5 with transforam inal interbody arthrodesis and placement of intervertebral biomechanical device at L4-L5 with pedicle screws and camryn instrumentation at L4-L5. IMAGING: Venogram on 05/25/2017 showed no signs of DVT in the lower extremity. HISTORY OF PRESENT ILLNESS: Mr. Syed is a 76-year-old male who was transported from [facility] after being in the hospital for a week for low back pain and neurogenic claudication sy mptoms. He was transferred to [facility] to be evaluated by Neurosurgery and for a lumbar s brianna decompression. HOSPITAL COURSE: Postoperatively, a venogram was obtained and there was no DVT found. Mr. Syed wor ked with physical therapy over the next few days, increasing the amount of ambulation. He was able t o tolerate a regular diet and his pain was well controlled with pain medication. He was restarted on his home medications and all blood thinning medications were discontinued. There were no acute even ts in the hospital and his vital signs remained stable. DISCHARGE PHYSICAL EXAMINATION: HEENT: Normocephalic, atraumatic. Hearing intact. Moist mucous membranes. Trachea is midline. EYES: Pupils are equal and reactive to light. Extraocular muscles are intact. Sclerae is white, no nicteric. CARDIOVASCULAR: The patient had regular rate and rhythm, normal S1, S2 heart sounds. No distal cyan osis or clubbing in the upper and lower extremities bilaterally. Pulses were +2 and symmetric in the upper extremity, the brachial and radial pulses in lower extremity and posterior tibial pulses. RESPIRATORY: The patient has bilateral symmetric chest rise. Appears to be in no shortness of breat h. NEUROLOGIC: Cranial nerves II-XII are grossly intact. Speech is fluent. He answers my questions ap propriately. His symptoms of neurogenic claudication and lumbar radicular symptoms are resolving and the patient is gaining more strength in the lower extremity. Vital signs are stable on discharge. ACTIVITY: The patient can have regular activity with no lifting more than 20 pounds. He is to wear a brace when ambulating and sitting upright. DIET: The patient can have a heart healthy diet. HOME MEDICATIONS: 1. Cyclobenzaprine 10 mg p.o. t.i.d. 2. Tylenol #3 one to two tablets p.o. q.4 hours p.r.n. 3. Metformin 1 tablet p.o. b.i.d. with meals. 4. Omeprazole 40 mg p.o. daily. 5. Lisinopril 5 mg p.o. b.i.d. 6. Carvedilol 3.125 mg p.o. b.i.d. 7. Amiodarone HCL 200 mg p.o. q.a.m. 8. Megestrol acetate 40 mg p.o. q.i.d.
== END 2017-05-30 15:19 | DRG 460 ==
LOC: SURG A 07:26
PROVIDERS: ADMIT Neurological Surgery; ATTEND Neurological Surgery
PROC: 0SG00AJ Fusion of Lumbar Vertebral Joint with Interbody Fusion Device, Posterior Approach, Anterior Column, Open Approach (ICD-10-PCS; principal; 2017-05-25)
PROC: 01NB0ZZ Release Lumbar Nerve, Open Approach (ICD-10-PCS; 2017-05-25)
PROC: 0ST20ZZ Resection of Lumbar Vertebral Disc, Open Approach (ICD-10-PCS; 2017-05-25)
PROC: 30233N1 Transfusion of Nonautologous Red Blood Cells into Peripheral Vein, Percutaneous Approach (ICD-10-PCS; 2017-05-28)
DX: M43.16 Spondylolisthesis, lumbar region (principal); I42.9 Cardiomyopathy, unspecified; E11.9 Type 2 diabetes mellitus without complications; D62 Acute posthemorrhagic anemia; M48.062 Spinal stenosis, lumbar region with neurogenic claudication; I25.10 Atherosclerotic heart disease of native coronary artery without angina pectoris; Z87.891 Personal history of nicotine dependence; Z95.810 Presence of automatic (implantable) cardiac defibrillator
CPT/HCPCS: 36415; 36416; 36430; 76001; 80048; 82805; 85014; 85018; 85025; 85610; 85730; 86850; 86900; 86901; 93970; A4216; C1713; C1768; G8978-GP-CL; G8979-GP-CI; J1100; J1170; J2001; J2405; J2704; J2765; J3010; J3370; J3490; P9016; P9045; S0179

== ENCOUNTER 2019-09-25 05:48 | Inpatient (IN) | payer MEDICARE ==
--- NOTE | 2019-09-23 13:31 | HP ---
CHIEF COMPLAINT: "I am here for repeat back surgery." HISTORY OF PRESENT ILLNESS: Mr. Syed is a 79-year-old male who presents today for urgent COVID surgery. 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 His surgery was scheduled for May but was delayed due to his passing away. His legs are weak and not allowing him to climb stairs and is unable to leave the house. Back pain is in the anterior left greater than right and right greater than left posterior thighs pain. The pain extends beyond his knees in the L4, L5, and S1 dermatomes. CURRENT MEDICATIONS: 1. Sertraline 25 mg. 2. Lisinopril 5 mg. 3. Amiodarone 200 mg. 4. Furosemide 40 mg. 5. Carvedilol 3.125 mg. 6. Humalog KwikPen 100 units/mL. 7. Hydrocodone acetaminophen 10/325 mg. 8. Gabapentin 600 mg. MEDICAL HISTORY: Coronary artery disease, diabetes, high cholesterol, high blood pressure. ALLERGIES: STATINS, BECOMES "MEAN" PAST SURGICAL HISTORY: Heart valve transplant in 2016, lower back surgery in 2016, right knee replacement in 2004. HOSPITALIZATIONS: As above. FAMILY HISTORY: Father . Mother . Siblings . . SOCIAL HISTORY: Former smoker, one pack for 6 years. Four children. REVIEW OF SYSTEMS: CONSTITUTIONAL: Denies fevers, chills. EAR, NOSE, AND THROAT: Denies change in vision or hearing. CARDIAC: Denies chest pain, shortness of breath, diaphoresis. PULMONARY: Denies shortness of breath, cough, hemoptysis. GI: Denies fecal incontinence, abdominal pain, nausea, vomiting, diarrhea, change in stool formation or consistency. : Denies urinary incontinence, trouble with urination, frequency of urination , bloody urine. SKIN: Denies skin rash, bruising, bleeding, skin masses. MUSCULOSKELETAL: As per history of present illness. NEUROLOGIC: As per history of present illness. PSYCHOLOGIC: Denies anxiety, depression, change in behavior. PHYSICAL EXAMINATION: HEENT: Pupils are equal. NECK: Normal, soft, and supple. No masses are noted. ROM is intact and nonpainful. NEUROLOGIC: Awake, alert, and oriented x3. Memory, attention, fund of knowledge, and language are normal. Cranial nerves 2 through 12 grossly intact. Gait and station, stands for 15 seconds maximum. Motor: At seated position, was thighs off chair, better on right than left, about 5 seconds maximum. Quadriceps strong enough to extending the knee, but gets feet up only 8 inches on the left, 3 to 4 inches on the right. Weakness and pain make him put his feet back down. He can dorsiflex and plantar flex the ankles but not much against resistance. Sensory: Loss of sensory left greater than right anterior thigh, both sides below the knee. Lower extremity exam, plus SLR bilateral. IMAGING: CT, marked collapse of L3-4 disk compared to fall of 2019. Large portion in the canal. L2-3 HNP, also much larger. L4-[address]. ASSESSMENT: Spinal stenosis of the lumbar sacral region, lumbar radiculopathy, spondylolisthesis in the lumbar region, osseous and subluxation stenosis of intervertebral foramen of the lumbar region and neurogenic claudication. TREATMENT: 1. Deterioration in functional ability over 3-4 weeks. 2. Severe disk disease with rapid image deterioration. 3. Collapse of the foramina at L3-4, require TLIF. 4. Will need inpatient rehab. 5. Already cleared for anesthesia in May. PLAN: Extension of his fusion. Redue L2-3, L3-4 lami and removal of L4-5 rods and extend fusion to L3. INFORMED CONSENT: We discussed the indications, risks, benefits, alternatives, and expected results from surgery. The risks discussed included, but were not limited to, bleeding, infection, CSF leak, nerve damage, weakness, incontinence, cauda equina injury, paralysis, ventilator dependency, wheelchair dependency, loss of vision, hardware misplacement, cardiopulmonary complications of anesthesia, arachnoiditis, or . Long-term complications discussed included, but were not limited to, degeneration of surrounding disk and future surgery. He understands the risks and is willing to proceed. Urgent COVID surgery: In our medical judgment, the patient has a serious medical condition and this surgery is medically necessary. In our medical judgment, delaying the surgery would put the patient at risk for serious adverse consequences. We have been approved by the facility review process to proceed to the benefit of the patient. Job ID: [id number] [facility]
[2019-09-24 10:59] VITALS: BMI 27.3
[2019-09-25] MEDS ORDERED: Bupivacaine PF 0.5% 30 ML VIAL ONE (06:13)
[2019-09-25] MEDS ORDERED: Thrombin 5000 UNITS/5 ML VIAL ONE (06:13)
[2019-09-25] MEDS ORDERED: EPINEPHrine 1 MG/ML AMP ONE (06:13)
[2019-09-25 06:23] LABS: Hemoglobin 13.8 g/dL (14.0-18.0); Mean Corpuscular HGB CONC 32.4 g/dL (32.0-36.0); Mean Corpuscular Hemoglobin 31.9 pg (27.0-31.0); Mean Corpuscular Volume 98.7 fL (78.0-98.0); Mean Platelet Volume 8.4 fL (7.4-10.4); Platelet Count 319 thou/uL (130-400); Red Blood Cell (RBC) Count 4.32 mill/uL (4.70-6.10); White Blood Cell (WBC) Count 14.2 thou/uL (4.8-10.8)
[2019-09-25 06:30] LABS: Prothrombin Time 13.5 SEC (12.0-14.7)
[2019-09-25 06:31] LABS: PTT 26.2 SEC (22.9-36.1)
[2019-09-25] MEDS ORDERED: Midazolam HCl 2 mg/2 ml Vial ONE (06:51)
[2019-09-25] MEDS ORDERED: Fentanyl 250 MCG/5 ML VIAL ONE (06:51)
[2019-09-25] MEDS ORDERED: Phenylephrine 10 MG/ML VIAL ONE ×2 (06:51→10:11)
[2019-09-25] MEDS ORDERED: Rocuronium Bromide 50 MG/5 ML VIAL ONE (09:24)
[2019-09-25] MEDS ORDERED: Hetastarch 6% 500 ML 500 ML ONE (10:23)
[2019-09-25] MEDS ORDERED: Glycopyrrolate 0.2 MG/ML 5 ML SYRINGE ONE (11:22)
[2019-09-25] MEDS ORDERED: PHENYLEPHRINE-NS 100 MCG/ML 10 ML SYRINGE ONE (11:22)
[2019-09-25] MEDS ORDERED: Ketorolac Tromethamine 30 MG/ML VIAL ONE (11:22)
[2019-09-25] MEDS ORDERED: PROPOFOL 200 MG/20 ML VIAL ONE (11:22)
[2019-09-25] MEDS ORDERED: Rocuronium Bromide 10 MG/ML (10ML VIAL) ONE (11:22)
[2019-09-25] MEDS ORDERED: Ondansetron PF 4 MG/2 ML Vial ONE (11:22)
[2019-09-25] MEDS ORDERED: EPHEDRINE 25 MG/5 ML SYRINGE ONE (11:22)
[2019-09-25] MEDS ORDERED: Lidocaine 1% PF 5 ML VIAL ONE (11:22)
[2019-09-25] MEDS ORDERED: Promethazine HCl 25 MG/ML VIAL SLOW IVP PRN (13:47)
[2019-09-25] MEDS ORDERED: Promethazine HCl 25 MG/ML VIAL IM PRN (13:47)
[2019-09-25] MEDS ORDERED: Ondansetron HCl/PF 4 MG/2 ML Vial IVP PRN (13:47)
[2019-09-25] MEDS ORDERED: Fentanyl 100 MCG/2 ML VIAL ONE (14:00)
--- NOTE | 2019-09-25 14:21 | OP ---
DATE OF PROCEDURE: 09/25/2019 ANESTHESIOLOGY TECHNOLOGIST: Alexander Bustamante PA-C PREOPERATIVE INDICATION: Treat pain and prevent further neurological deterioration. PREOPERATIVE DIAGNOSES: Prior lumbar decompression and fusion, adjacent segment degenerative disk disease with large disk herniation, multiple lumbar radiculopathies, and progressive neurological decline. POSTOPERATIVE DIAGNOSES: Prior lumbar decompression and fusion, adjacent segment degenerative disk disease with large disk herniation, multiple lumbar radiculopathies, and progressive neurological decline. PROCEDURES PERFORMED: Reopening lumbar incision, removal of spinal cord stimulator, exploration of previous arthrodesis at L4-L5, repeat lumbar laminectomy with medial facetectomy, foraminotomy at L2-L3 and L3-L4 bilateral, microdiskectomy L3-L4, bilateral transforaminal lumbar interbody arthrodesis L3-L4, placement of intervertebral biomechanical device L3-L4, pedicle screw and camryn instrumentation L3-L4, removal of posterior rods L4-L5, placement of new rods L3, L4, L5, posterolateral arthrodesis L3, L4, L5, local morselized autograft, morselized allograft, operating microscope. PREOPERATIVE MEDICATIONS: Ancef 2 g IV. DRAIN NUMBER: Zero. DRAIN TYPE: None. DESCRIPTION OF PROCEDURE: The patient was brought to the operating room. General endotracheal anesthesia was induced using COVID-19 precautions. The patient was carefully positioned on the operating table with the chest and hips supported by the appropriate attachments of the [place] frame. A lateral fluoro radiograph confirmed that the previous incision could give us access from L1 through L5. Hair was removed with electric clippers. The lumbar skin was sterilely prepped and draped. We opened the midline incision and encountered stimulator wires. There was no way to preserve these wires and get the operation done safely. We elected to remove the stimulator, as the patient complained it did not provide any benefit whatsoever. We opened the pocket lateral to our incision and removed the pulse generator. We removed the leads without complication. We then went back to our decompressive operation. We dissected sharply down the midline until we encountered the L1 spinous process and the top of the L5 spinous process. We removed scar tissue and paraspinal muscles off the remnants of the lamina from L2 to the top of L5. We encountered screws at the L4 and L5 pedicles and dissected over the screws exposing the entire previous instrumentation as well as the transverse processes of L5, L4, L3, and L2. We irrigated copiously with bacitracin irrigation. We placed self-retaining retractors. We then identified the remnant of the lamina of L2 and using a curette, we freed scar tissue from the sides of the spinal canal. Using Kerrison rongeurs, we performed medial facetectomies on both sides at L2-L3 and L3-L4 and identified and decompressed the L3 and the L4 nerve roots bilaterally. Under microscopic magnification using microsurgical techniques, we found a large amount of disk material in the ventral epidural space behind the L3 vertebral body. This disk had herniated most likely from the L3-L4 interspace. There was very little disk left there. There was huge opening in the annulus and a copious amount of disk material in the ventral epidural space under the right-sided L3 and the right-sided L4 nerve root. The disk material present made its way all the way to the L2-L3 interspace, where we found that the loose ventral disk material was completely separate from the protruding disk at the interspace. That protruding disk at the interspace had a mostly calcified annulus fibrosus and the annulus was intact. There was no opening through which any disk could come. Facet joints at L2-L3 looked competent. We elected not to fuse L2-L3 because of the intact disk and facets. In comparison, the L3-L4 disk was completely degenerate missing all of its cartilage and the facet joints, especially the left side at L3-L4 was incompetent. We removed the pars interarticularis of L3 on the left side and we removed the superior portion of the facet joint and opened the foramen. We could easily identify the L3 nerve root and removed disk material from the ventral surface of it. We accessed into intervertebral space through the foramen and removed small remnants of disks with curettes. We prepared the endplates for grafting using curettes and rongeurs. We measured the height of this interspace to 12 mm with a rectangular bone rasp. A 12-mm PEEK intervertebral device was brought into the field. The bone harvested during decompression was cleaned of soft tissue attachments, morcellized and added to demineralized bone matrix as our fusion substrate. The substrate was packed inside the PEEK device, which was then advanced into the interspace under radiographic guidance to the appropriate depth. We turned our attention to pedicle screw instrumentation. Using bony anatomic landmarks, palpation of the medial portion of the pedicles and a lateral fluoro radiograph as our guide, we chose entry points for L3 pedicle screws bilaterally. We drilled out our entry points and then used a bone awl to widen our trajectory. We probed the trajectories and found it completely encased in bone. A 6.5 x 55 mm screws were placed in the pedicles of L3 bilaterally and a 360-degree image set was generated with our isocentric C-arm. This confirmed adequate positioning of our pedicle screw instrumentation. We irrigated with bacitracin irrigation. We removed the previous rods at L4-L5 by loosening the caps and bring the rods out of the field. We found the fusion to be incomplete laterally when we inspected it especially on the patient's left side. There was more bone on the right, but the facet joints at L4-L5 moved after the rods were removed. We brought the longer rods into the field. They would capture the L3, L4, and L5 pedicle screw heads. We placed these. The caps were tightened over the rods and we used gentle compressive force across the L3-L4 interspace to keep our interbody graft in place. We tightened using a torque/counter-torque mechanism to the adequate tightness. We then decorticated the transverse processes of L3, L4, and L5 bilaterally and decorticated the fusion mass bilaterally at L4-L5. Over the decorticated bone, we left demineralized bone matrix and morselized autograft as our posterolateral fusion substrate. We irrigated with bacitracin irrigation. We treated the wound with vancomycin powder and we closed in anatomic layers. We applied a sterile dressing. This was a clean case, no contamination. Job ID: [id number]
[2019-09-25] MEDS ORDERED: tiZANidine HCl 4 MG TAB PO PRN (15:47)
[2019-09-25] MEDS ORDERED: traMADol HCl 50 MG TAB PO PRN (15:47)
[2019-09-25] MEDS ORDERED: Ondansetron PF 4 MG/2 ML Vial IM PRN (15:47)
[2019-09-25] MEDS ORDERED: Morphine 4 MG/ML VIAL SLOW IVP PRN (15:47)
[2019-09-25] MEDS ORDERED: Sodium Chloride 0.9% 1,000 ML IV SCH (15:47)
[2019-09-25] MEDS ORDERED: Morphine 2 MG/ML SYRINGE SLOW IVP PRN (15:47)
[2019-09-25] MEDS ORDERED: Cyclobenzaprine 10 MG TAB PO PRN (15:54)
[2019-09-25] MEDS ORDERED: HYDROcodone/Acetaminophen 10/325 mg Tablet PO PRN (15:55)
[2019-09-25] MEDS ORDERED: Sodium Chloride 0.9% 500 ML IV SCH (17:15)
[2019-09-25] MEDS: Sodium Chloride 0.9% 1,000 ML IV SCH (17:30)
[2019-09-25] MEDS: metFORMIN 500 MG TAB PO SCH (17:37)
[2019-09-25] MEDS ORDERED: Dextrose 50% Abboject 50 ML SYRINGE SLOW IVP PRN (20:01)
[2019-09-25] MEDS ORDERED: Dextrose 5% in Water 1,000 ML IV PRN (20:01)
--- NOTE | 2019-09-25 20:04 | PDOC.HOSPP ---
- Subjective Encounter Date: 09/25/19 Encounter Time: 20:03 Subjective: Patient seen and examined. Denies chest pain, heart palps, SOB, nausea or vomiting. No new complaints. s/p L3-L5 fusion with stimulator removal. Consulted for medical management. - Objective Vital Signs & Weight: Vital Signs (12 hours) Temp Pulse Resp BP Pulse Ox 09/25/19 15:45 97.7 F 62 20 92/57 L 99 Weight Weight 185 lb Result Diagrams: 09/25/19 06:12 Additional Labs: Accuchecks 09/25/19 09/25/19 17:38 06:26 POC Glucose 209 H 167 H EKG Reviewed by me: Yes (Paced) Hospitalist ROS - Review of Systems Constitutional: denies: fever, chills, sweats, weakness, malaise, other Respiratory: denies: cough, dry, shortness of breath, hemoptysis, SOB with excertion, pleuritic pain, sputum, wheezing, other Cardiovascular: denies: chest pain, palpitations, orthopnea, paroxysmal noc. dyspnea, edema, light headedness, other Gastrointestinal: denies: nausea, vomiting, abdominal pain, diarrhea, constipation, melena, hematochezia, other Neurological: denies: weakness, numbness, incoordination, change in speech, confusion, seizures, other - Medication Medications: Active Medications Generic Name Dose Route Start Last Admin Trade Name Freq PRN Reason Stop Dose Admin Sodium Chloride 1,000 mls @ 75 mls/hr 09/25/19 17:15 09/25/19 17:30 Normal Saline 0.9% IV 1,000 mls .[id number] ANDRES Administration Metformin HCl 1,000 mg 09/25/19 17:00 09/25/19 17:37 Glucophage PO 1,000 mg BID-WM ANDRES Administration - Exam General Appearance: NAD, awake alert Eye: anicteric sclera ENT: normocephalic atraumatic Neck: supple, no JVD Heart: RRR, no murmur, no gallops, no rubs, normal peripheral pulses Respiratory: CTAB, no wheezes, no rales, no ronchi, no tachypnea Gastrointestinal: soft, non-tender, no guarding, no rigidity, diminished bowl sounds Extremities: no cyanosis, no edema Neurological: no focal deficits Psychiatric: normal affect, A&O x 3 Hosp A/P (1) HTN (hypertension) Code(s): I10 - ESSENTIAL (PRIMARY) HYPERTENSION Status: Chronic Plan: Patient SBP 90s Will restart Coreg with parameters Will restart amiodarone Will hold lasix and lisinopril continue IVF Check BMP and CBC in am (2) DM2 (diabetes mellitus, type 2) Status: Chronic Qualifiers: Diabetes mellitus detention insulin use: without lobsterman use Diabetes mellitus complication status: with hyperglycemia Qualified Code(s): E11.65 - Type 2 diabetes mellitus with hyperglycemia Plan: BG 200s Will restart metformin Start mild sliding scale Accucheck AC/HS (3) History of atrial fibrillation Code(s): Z86.79 - PERSONAL HISTORY OF OTHER DISEASES OF THE CIRCULATORY SYSTEM Status: Acute Plan: Will continue coreg with parameters Will continue amiodarone (4) MEI (obstructive sleep apnea) Code(s): G47.33 - OBSTRUCTIVE SLEEP APNEA (ADULT) (PEDIATRIC) Status: Chronic Plan: Non compliant with CPAP per patient No respiratory distress, on RA will monitor VS (5) CAD (coronary artery disease) Code(s): I25.10 - ATHSCL HEART DISEASE OF [place] CORONARY ARTERY W/O ANG PCTRS Status: Chronic (6) Cardiomyopathy Code(s): I42.9 - CARDIOMYOPATHY, UNSPECIFIED Status: Chronic - Plan PT/OT, DVT proph w/SCDs Start ASA 81 mg q day DVT prophylaxis, home med per patient Discussed case with Dr. Jeffers.
[2019-09-25] MEDS: Carvedilol 3.125 MG TAB PO SCH (20:43)
[2019-09-25] MEDS: Aspirin 81 mg Enteric Coated Tablet PO SCH (20:43)
[2019-09-25 20:58] LABS: Glucose POC Confirmation 181 mg/dl (83-110)
[2019-09-25] MEDS ORDERED: Gabapentin 300 MG CAP PO SCH (21:00)
[2019-09-25] MEDS ORDERED: Lisinopril 5 MG TAB PO SCH (21:00)
[2019-09-25] MEDS ORDERED: Carvedilol 3.125 MG TAB PO SCH (21:00)
[2019-09-25] MEDS: Mag-Al 1200 mg/1200 mg/30 ML UDCUP PO PRN (22:26)
[2019-09-25] MEDS: CEFAZOLIN 2 GM in Premix Bag 1 BAG IVPB SCH (22:40)
[2019-09-26] MEDS: Sodium Chloride 0.9% 1,000 ML IV SCH ×3 (00:49→22:04)
[2019-09-26] MEDS: CEFAZOLIN 2 GM in Premix Bag 1 BAG IVPB SCH ×3 (06:08→21:42)
[2019-09-26 06:42] LABS: #Eosinphils 0.2 thou/uL (0.0-0.7); #Lymphocytes 0.6 thou/uL (1.20-3.40); #Monocytes 0.7 thou/uL (0.11-0.59); #Neutrophils 9.9 thou/uL (1.40-6.50); %Eosinophils 1.7 % (0.0-10.0); %Lymphocytes 4.9 % (21.0-51.0); %Monocytes 5.7 % (0.0-10.0); %Neutrophils 87.6 % (42.0-75.0); Hemoglobin 9.3 g/dL (14.0-18.0); Mean Corpuscular Hemoglobin 32.9 pg (27.0-31.0); Mean Corpuscular Volume 99.6 fL (78.0-98.0); Mean Platelet Volume 8.4 fL (7.4-10.4); Platelet Count 170 thou/uL (130-400); RBC Distribution Width 13.7 % (11.5-14.5); Red Blood Cell (RBC) Count 2.81 mill/uL (4.70-6.10); White Blood Cell (WBC) Count 11.3 thou/uL (4.8-10.8)
[2019-09-26 06:56] LABS: Anion Gap 15 mmol/L (10-20); BUN (Urea Nitrogen) 80 mg/dL (8.4-25.7); Calc. Creatinine Clearance 37 mL/min (70-130); Calcium 7.9 mg/dL (7.8-10.44); Carbon Dioxide 18 mmol/L (23-31); Chloride 110 mmol/L (98-107); Estimated GFR-MDRD 33; Glucose 135 mg/dL (83-110); Potassium 5.5 mmol/L (3.5-5.1); Sodium 137 mmol/L (136-145)
[2019-09-26] MEDS: Carvedilol 3.125 MG TAB PO SCH ×2 (08:46→22:04)
[2019-09-26] MEDS: Amiodarone 200 MG TAB PO SCH (08:47)
[2019-09-26] MEDS: metFORMIN 500 MG TAB PO SCH (08:47)
[2019-09-26] MEDS ORDERED: Furosemide 40 MG TAB PO SCH (09:00)
[2019-09-26] MEDS ORDERED: Alogliptin 25 MG TAB PO SCH (09:00)
[2019-09-26] MEDS ORDERED: Sodium Bicarbonate Tab 325 MG TAB PO SCH (09:45)
[2019-09-26] MEDS: Sodium Bicarbonate Tab 325 MG TAB PO SCH ×2 (14:19→20:40)
[2019-09-26 14:34] LABS: Anion Gap 15 mmol/L (10-20); BUN (Urea Nitrogen) 68 mg/dL (8.4-25.7); Calc. Creatinine Clearance 39 mL/min (70-130); Calcium 7.9 mg/dL (7.8-10.44); Carbon Dioxide 19 mmol/L (23-31); Chloride 108 mmol/L (98-107); Estimated GFR-MDRD 35; Glucose 182 mg/dL (83-110); Potassium 5.3 mmol/L (3.5-5.1); Sodium 137 mmol/L (136-145)
[2019-09-26] MEDS: Mag-Al 1200 mg/1200 mg/30 ML UDCUP PO PRN ×2 (15:20→21:42)
[2019-09-26] MEDS: HumaLOG 300 UNITS/3 ML VIAL SC PRN (16:40)
--- NOTE | 2019-09-26 20:16 | PDOC.HOSPP ---
- Subjective Encounter Date: 09/26/19 Encounter Time: 19:30 Subjective: Patient seen and examined for med mngt. Pain controlled. No CP/SOB. No new complaints. No overnight events - Objective Vital Signs & Weight: Vital Signs (12 hours) Temp Pulse Resp BP BP Pulse Ox 09/26/19 19:48 98 F 68 18 91/52 L 93 L 09/26/19 16:04 98.4 F 60 18 93/50 L 97 09/26/19 16:00 93/50 L 09/26/19 11:23 98.8 F 60 16 103/53 L 99 Weight Weight 185 lb I&O: 09/25/19 09/26/19 09/27/19 06:59 06:59 06:59 Intake Total 2450 Output Total 1225 950 Balance 1225 -950 Result Diagrams: 09/26/19 05:56 09/26/19 14:07 Additional Labs: Accuchecks 09/26/19 09/26/19 09/26/19 16:04 11:26 05:41 POC Glucose 196 H 206 H 150 H 09/25/19 09/25/19 09/25/19 21:47 11:38 09:24 POC Glucose 178 H 222 H 164 H Hospitalist ROS - Review of Systems Respiratory: denies: cough, dry, shortness of breath, hemoptysis, SOB with excertion, pleuritic pain, sputum, wheezing, other Cardiovascular: denies: chest pain, palpitations, orthopnea, paroxysmal noc. dyspnea, edema, light headedness, other - Medication Medications: Active Medications Generic Name Dose Route Start Last Admin Trade Name Freq PRN Reason Stop Dose Admin Al Hydroxide/Mg Hydroxide 30 ml 09/25/19 15:47 09/26/19 15:20 Maalox PO 30 ml Q4H PRN Administration Heartburn or Indigestion Alogliptin Benzoate 25 mg 09/26/19 09:00 09/26/19 08:46 Alogliptin PO 25 mg DAILY ANDRES Administration Amiodarone HCl 200 mg 09/26/19 09:00 09/26/19 08:47 Cordarone PO 200 mg DAILY ANDRES Administration Aspirin 81 mg 09/25/19 21:00 09/25/19 20:43 Ecotrin PO 81 mg HS ANDRES Administration Carvedilol 3.125 mg 09/25/19 21:00 09/26/19 08:46 Coreg PO 3.125 mg BID ANDRES Administration Sodium Chloride 1,000 mls @ 75 mls/hr 09/25/19 17:15 09/26/19 15:35 Normal Saline 0.9% IV Not Given .[id number] ANDRES Cefazolin Sodium/Dextrose 2 gm 50 mls @ 100 mls/hr 09/26/19 14:00 09/26/19 14 :19 / Device IVPB 50 mls Q8HR ANDRES Administration Insulin Human Lispro 0 units 09/25/19 20:01 09/26/19 16:40 Humalog SC 2 unit .MILD SLIDING SCALE PRN Administration Mild Correctional Scale Pantoprazole Sodium 40 mg 09/26/19 09:00 09/26/19 08:47 Protonix PO 40 mg DAILY ANDRES Administration Sertraline HCl 25 mg 09/25/19 21:00 09/25/19 20:43 Zoloft PO 25 mg QPM ANDRES Administration Sodium Bicarbonate 650 mg 09/26/19 15:00 09/26/19 14:19 Bicarbonate, Sodium PO 09/27/19 15:01 650 mg TID ANDRES Administration - Exam General Appearance: NAD Heart: RRR, no gallops Respiratory: no wheezes, no ronchi Gastrointestinal: non-tender, normal bowel sounds Extremities: no cyanosis Neurological: no new deficit Hosp A/P (1) Hyperkalemia Code(s): E87.5 - HYPERKALEMIA Status: Acute (2) JOSE ANGEL (acute kidney injury) Code(s): N17.9 - ACUTE KIDNEY FAILURE, UNSPECIFIED Status: Acute (3) HTN (hypertension) Code(s): I10 - ESSENTIAL (PRIMARY) HYPERTENSION Status: Chronic (4) CAD (coronary artery disease) Code(s): I25.10 - ATHSCL HEART DISEASE OF [place] CORONARY ARTERY W/O ANG PCTRS Status: Chronic (5) DM2 (diabetes mellitus, type 2) Status: Chronic Qualifiers: Chronic kidney disease stage: stage 3 (moderate) (6) Paroxysmal A-fib Code(s): I48.0 - PAROXYSMAL ATRIAL FIBRILLATION Status: Chronic - Plan DVT proph w/SCDs Cont IVF Low Potassium diet ACEI/Lasix on hold Add Sodium bicarb for met acidosis Cont Amiodarone Hold Metformin AM labs
[2019-09-26] MEDS: Aspirin 81 mg Enteric Coated Tablet PO SCH (20:40)
[2019-09-26] MEDS: traMADol HCl 50 MG TAB PO PRN (20:40)
[2019-09-27] MEDS: CEFAZOLIN 2 GM in Premix Bag 1 BAG IVPB SCH ×3 (05:15→21:54)
[2019-09-27] MEDS: traMADol HCl 50 MG TAB PO PRN (05:20)
[2019-09-27] MEDS: Sodium Chloride 0.9% 1,000 ML IV SCH ×3 (06:14→22:43)
[2019-09-27] MEDS: HumaLOG 300 UNITS/3 ML VIAL SC PRN ×3 (06:15→21:54)
--- NOTE | 2019-09-27 06:36 | PRG ---
DATE OF SERVICE: 09/27/2019 Mr. Syed is now postop day #2 following lumbar laminectomy with Dr. Schneider. He has minimal pain and is resting mostly comfortable in the bed, although admits that he has trouble falling asleep given the environment and uncomfortable nature of his mattress. Otherwise, he seems to be doing well. He has been ambulating well with physical therapy. Plan is to admit him to rehab and home, still we are awaiting a decision. Will follow up with Case Management this week. Job ID: [id number]
[2019-09-27 08:28] LABS: Anion Gap 11 mmol/L (10-20); BUN (Urea Nitrogen) 39 mg/dL (8.4-25.7); Calc. Creatinine Clearance 60 mL/min (70-130); Calcium 7.9 mg/dL (7.8-10.44); Carbon Dioxide 20 mmol/L (23-31); Chloride 111 mmol/L (98-107); Estimated GFR-MDRD 57; Glucose 135 mg/dL (83-110); Magnesium 1.9 mg/dL (1.6-2.6); Potassium 4.6 mmol/L (3.5-5.1); Sodium 137 mmol/L (136-145)
[2019-09-27] MEDS: Sodium Bicarbonate Tab 325 MG TAB PO SCH ×2 (09:13→15:00)
[2019-09-27] MEDS: Carvedilol 3.125 MG TAB PO SCH ×2 (09:14→21:53)
[2019-09-27] MEDS: Amiodarone 200 MG TAB PO SCH (09:14)
[2019-09-27] MEDS: HYDROcodone/Acetaminophen 10/325 mg Tablet PO PRN ×2 (11:06→20:08)
[2019-09-27 12:04] LABS: Anion Gap 11 mmol/L (10-20); BUN (Urea Nitrogen) 37 mg/dL (8.4-25.7); Calc. Creatinine Clearance 58 mL/min (70-130); Calcium 7.7 mg/dL (7.8-10.44); Carbon Dioxide 21 mmol/L (23-31); Chloride 110 mmol/L (98-107); Estimated GFR-MDRD 55; Glucose 224 mg/dL (83-110); Potassium 4.4 mmol/L (3.5-5.1); Sodium 138 mmol/L (136-145)
--- NOTE | 2019-09-27 14:01 | PRG ---
DATE OF SERVICE: 09/27/2019 I reviewed the note dictated by Mr. Kain Guadarrama PA-C, and agree with his assessment and plan. Mr. Syed continues to recover from his lumbar spine procedure. We await definitive word in terms of appropriate disposition planning. Once that has been defined, he may be discharged. Job ID: [id number]
--- NOTE | 2019-09-27 17:07 | PDOC.HOSPP ---
- Subjective Encounter Date: 09/27/19 Subjective: Patients back pain is improved. He is getting morphine every 1 hour Hasn't had bowel movement - Objective Vital Signs & Weight: Vital Signs (12 hours) Temp Pulse Resp BP BP Pulse Ox 09/27/19 16:15 98.1 F 61 14 121/63 96 09/27/19 11:23 98.4 F 66 16 117/59 L 96 09/27/19 09:40 98.0 F 70 16 176/66 H 99 09/27/19 07:28 97.9 F 61 14 114/61 98 Weight Weight 185 lb I&O: 09/26/19 09/27/19 09/28/19 06:59 06:59 06:59 Intake Total 2450 1380 Output Total 1225 2350 Balance 1225 -970 Result Diagrams: 09/26/19 05:56 09/27/19 Unknown Additional Labs: Accuchecks 09/27/19 09/27/19 09/27/19 16:22 11:30 06:03 POC Glucose 173 H 242 H 162 H 09/26/19 19:55 POC Glucose 157 H Hospitalist ROS - Review of Systems Constitutional: denies: fever - Medication Medications: Active Medications Generic Name Dose Route Start Last Admin Trade Name Freq PRN Reason Stop Dose Admin Hydrocodone Bitart/Acetaminophen 2 tab 09/26/19 10:53 09/27/19 11:06 [place] 10/325 PO 2 tab Q6H PRN Administration Pain Al Hydroxide/Mg Hydroxide 30 ml 09/25/19 15:47 09/26/19 21:42 Maalox PO 30 ml Q4H PRN Administration Heartburn or Indigestion Amiodarone HCl 200 mg 09/26/19 09:00 09/27/19 09:14 Cordarone PO 200 mg DAILY ANDRES Administration Aspirin 81 mg 09/25/19 21:00 09/26/19 20:40 Ecotrin PO 81 mg HS ANDRES Administration Carvedilol 3.125 mg 09/25/19 21:00 09/27/19 09:14 Coreg PO 3.125 mg BID ANDRES Administration Sodium Chloride 1,000 mls @ 75 mls/hr 09/25/19 17:15 09/27/19 09:15 Normal Saline 0.9% IV Not Given .[id number] ANDRES Cefazolin Sodium/Dextrose 2 gm 50 mls @ 100 mls/hr 09/26/19 14:00 09/27/19 15 :00 / Device IVPB 50 mls Q8HR ANDRES Administration Insulin Human Lispro 0 units 09/25/19 20:01 09/27/19 06:15 Humalog SC 2 unit .MILD SLIDING SCALE PRN Administration Mild Correctional Scale Pantoprazole Sodium 40 mg 09/26/19 09:00 09/27/19 09:14 Protonix PO 40 mg DAILY ANDRES Administration Sertraline HCl 25 mg 09/25/19 21:00 09/26/19 20:40 Zoloft PO 25 mg QPM ANDRES Administration Tramadol HCl 50 mg 09/25/19 15:47 09/27/19 05:20 Ultram PO 50 mg Q6H PRN Administration PAIN (1-3) - Exam General Appearance: NAD, awake alert Eye: PERRL, anicteric sclera ENT: normocephalic atraumatic, no oropharyngeal lesions Neck: supple, symmetric, no JVD, no thyromegaly Heart: RRR, no murmur, no gallops, no rubs Respiratory: CTAB, no wheezes, no rales, no ronchi Gastrointestinal: negative: soft, non-tender, non-distended, normal bowel sounds , no palpable masses, no hepatomegaly, no splenomegaly, no bruit, no guarding, no rigidity, tender to palpation, distended, diminished bowl sounds, voluntary guarding Gastrointestinal - other findings: no spinal infection evident Extremities: no cyanosis, no clubbing, no edema Skin: normal turgor, no lesions, no rashes Hosp A/P - Plan This is 79 year old male s/p fusion L3-L5 and removal of stimulator #Back pain s/p fusion #Leukocytosis - pain management per neurosurgery. WBC downtrending on IV cefazolin - patient is awaiting rehab placement FOlate deficiency anemia - hemoglobin dropped from 13 to 9. Possible postop component - continue to monitor - folate low, started folic acid supplementation. B12 normal Diabetes - continue insulin sliding scale
[2019-09-27] MEDS ORDERED: Polyethylene Glycol 3350 17 GM Packet PO PRN (17:10)
[2019-09-27] MEDS: Lidocaine 5% Patch TD SCH (18:39)
[2019-09-27] MEDS: Aspirin 81 mg Enteric Coated Tablet PO SCH (20:08)
[2019-09-28] MEDS: CEFAZOLIN 2 GM in Premix Bag 1 BAG IVPB SCH ×3 (05:30→21:16)
[2019-09-28] MEDS: Lidocaine Patch Removal 1 EACH TOP SCH (05:30)
[2019-09-28] MEDS: HumaLOG 300 UNITS/3 ML VIAL SC PRN ×2 (06:50→17:09)
[2019-09-28 08:26] LABS: Anion Gap 9 mmol/L (10-20); BUN (Urea Nitrogen) 20 mg/dL (8.4-25.7); Calc. Creatinine Clearance 74 mL/min (70-130); Calcium 8.1 mg/dL (7.8-10.44); Carbon Dioxide 23 mmol/L (23-31); Chloride 111 mmol/L (98-107); Estimated GFR-MDRD 73; Glucose 163 mg/dL (83-110); Potassium 4.1 mmol/L (3.5-5.1); Sodium 139 mmol/L (136-145)
[2019-09-28 08:41] LABS: #Eosinphils 0.1 thou/uL (0.0-0.7); #Lymphocytes 0.5 thou/uL (1.20-3.40); #Monocytes 0.6 thou/uL (0.11-0.59); %Basophils 0.4 % (0.0-1.0); %Eosinophils 1.6 % (0.0-10.0); %Lymphocytes 5.7 % (21.0-51.0); %Monocytes 6.1 % (0.0-10.0); %Neutrophils 86.2 % (42.0-75.0); Hemoglobin 7.9 g/dL (14.0-18.0); MDiff Complete? YES; Mean Corpuscular HGB CONC 33.1 g/dL (32.0-36.0); Mean Corpuscular Hemoglobin 33.2 pg (27.0-31.0); Mean Platelet Volume 8.8 fL (7.4-10.4); Platelet Count 117 thou/uL (130-400); Platelet Morphology Comment Appears Decreased; RBC Distribution Width 13.4 % (11.5-14.5); Red Blood Cell (RBC) Count 2.38 mill/uL (4.70-6.10); White Blood Cell (WBC) Count 9.3 thou/uL (4.8-10.8)
[2019-09-28] MEDS: Folic Acid 1 MG TAB PO SCH (10:42)
[2019-09-28] MEDS: Amiodarone 200 MG TAB PO SCH (10:42)
[2019-09-28] MEDS: Carvedilol 3.125 MG TAB PO SCH ×2 (10:42→21:17)
[2019-09-28] MEDS: HYDROcodone/Acetaminophen 10/325 mg Tablet PO PRN (10:42)
--- NOTE | 2019-09-28 11:24 | PRG ---
DATE OF SERVICE: 09/28/2019 Mr. Syed is a little more uncomfortable today, citing some left knee pain, which he has known significant arthropathy and I worry about putting him on any significant NSAID therapy given his history of hypertension, heart disease, and his advanced age. We will investigate other options to try to get him a little more comfortable. He also cites some nausea and has Zofran orally, so would recommend just continuing to utilize this as needed, so the patient is able to keep his food down, which is his concern at present. We are still awaiting placement to [facility], which hopefully will happen tomorrow. We will continue to follow up with Case Management for this purpose. Job ID: [id number]
[2019-09-28] MEDS: Sodium Chloride 0.9% 1,000 ML IV SCH (11:47)
[2019-09-28] MEDS: Lidocaine 5% Patch TD SCH (17:07)
--- NOTE | 2019-09-28 17:28 | PDOC.HOSPP ---
- Subjective Encounter Date: 09/28/19 Encounter Time: 17:26 Subjective: Mr. Syed was seen today in follow-up post Lumbar Spinal surgery. He does not have any complaints other than the food. - Objective Vital Signs & Weight: Vital Signs (12 hours) Temp Pulse Pulse Resp BP BP BP 09/28/19 16:58 97.6 F 65 16 147/80 H 09/28/19 16:42 97.6 F 16 136/74 09/28/19 16:35 97.6 F 63 16 136/74 09/28/19 15:28 97.4 F L 60 12 144/76 H 09/28/19 12:00 97.1 F L 63 18 133/75 09/28/19 08:00 98 F 61 16 133/68 Pulse Ox 09/28/19 16:58 99 09/28/19 16:42 09/28/19 16:35 100 09/28/19 15:28 97 09/28/19 12:00 98 09/28/19 08:00 98 Weight Weight 185 lb Most Recent Monitor Data Heart Rate from ECG 63 I&O: 09/27/19 09/28/19 09/29/19 06:59 06:59 06:59 Intake Total 1380 1800 760 Output Total 2350 700 875 Balance -970 1100 -115 Result Diagrams: 09/28/19 07:59 09/28/19 07:59 Additional Labs: Accuchecks 09/28/19 09/28/19 09/28/19 16:50 10:56 05:39 POC Glucose 182 H 174 H 203 H 09/27/19 19:41 POC Glucose 205 H Hospitalist ROS - Medication Medications: Active Medications Generic Name Dose Route Start Last Admin Trade Name Freq PRN Reason Stop Dose Admin Hydrocodone Bitart/Acetaminophen 2 tab 09/26/19 10:53 09/28/19 10:42 [place] 10/325 PO 2 tab Q6H PRN Administration Pain Al Hydroxide/Mg Hydroxide 30 ml 09/25/19 15:47 09/26/19 21:42 Maalox PO 30 ml Q4H PRN Administration Heartburn or Indigestion Amiodarone HCl 200 mg 09/26/19 09:00 09/28/19 10:42 Cordarone PO 200 mg DAILY ANDRES Administration Aspirin 81 mg 09/25/19 21:00 09/27/19 20:08 Ecotrin PO 81 mg HS ANDRES Administration Carvedilol 3.125 mg 09/25/19 21:00 09/28/19 10:42 Coreg PO 3.125 mg BID ANDRES Administration Folic Acid 1 mg 09/28/19 09:00 09/28/19 10:42 Folvite PO 1 mg DAILY ANDRES Administration Sodium Chloride 1,000 mls @ 75 mls/hr 09/25/19 17:15 09/28/19 11:47 Normal Saline 0.9% IV Not Given .[id number] ANDRES Cefazolin Sodium/Dextrose 2 gm 50 mls @ 100 mls/hr 09/26/19 14:00 09/28/19 14 :56 / Device IVPB 50 mls Q8HR ANDRES Administration Insulin Human Lispro 0 units 09/25/19 20:01 09/28/19 17:09 Humalog SC 2 unit .MILD SLIDING SCALE PRN Administration Mild Correctional Scale Insulin Human Lispro 0 units 09/25/19 20:01 09/27/19 21:54 Humalog SC 2 unit .BEDTIME SLIDING SC PRN Administration Bedtime Correctional Scale Lidocaine 1 patch 09/27/19 18:00 09/28/19 17:07 Lidoderm 5% Patch TD 1 patch 1800 ANDRES Administration Miscellaneous Medication 1 each 09/28/19 06:00 09/28/19 05:30 Lidocaine Patch Removal TOP 1 each 0600 ANDRES Administration Ondansetron HCl 4 mg 09/25/19 15:47 09/28/19 04:13 Zofran IM 4 mg Q24H PRN Administration Nausea/Vomiting Pantoprazole Sodium 40 mg 09/26/19 09:00 09/28/19 10:42 Protonix PO 40 mg DAILY ANDRES Administration Sertraline HCl 25 mg 09/25/19 21:00 09/27/19 20:08 Zoloft PO 25 mg QPM ANDRES Administration Tramadol HCl 50 mg 09/25/19 15:47 09/27/19 05:20 Ultram PO 50 mg Q6H PRN Administration PAIN (1-3) - Exam Eye: PERRL, anicteric sclera Heart: RRR, no gallops, no rubs, normal peripheral pulses, murmur present, II/IV Respiratory: CTAB, no wheezes, no rales, no ronchi, normal chest expansion, no tachypnea Gastrointestinal: soft, non-tender, normal bowel sounds Extremities: no cyanosis, no edema Hosp A/P (1) HTN (hypertension) Code(s): I10 - ESSENTIAL (PRIMARY) HYPERTENSION Status: Chronic (2) MEI (obstructive sleep apnea) Code(s): G47.33 - OBSTRUCTIVE SLEEP APNEA (ADULT) (PEDIATRIC) Status: Chronic (3) Paroxysmal A-fib Code(s): I48.0 - PAROXYSMAL ATRIAL FIBRILLATION Status: Chronic (4) S/P lumbar laminectomy Code(s): Z98.890 - OTHER SPECIFIED POSTPROCEDURAL STATES Status: Acute (5) CAD (coronary artery disease) Code(s): I25.10 - ATHSCL HEART DISEASE OF [place] CORONARY ARTERY W/O ANG PCTRS Status: Chronic - Plan * HTN- blood pressure is stable * MEI- continue CPAP at night * AFIB- his heart rate is stable, and clinically the rate is regular-Continue Amiodarone and Carvedilol * Continue PT/OT * Awaiting Rehab transfer
[2019-09-28 19:40] LABS: Hemoglobin 10.1 g/dL (14.0-18.0)
[2019-09-28] MEDS: Aspirin 81 mg Enteric Coated Tablet PO SCH (21:17)
[2019-09-29] MEDS: HYDROcodone/Acetaminophen 10/325 mg Tablet PO PRN ×3 (01:24→20:19)
[2019-09-29] MEDS: Sodium Chloride 0.9% 1,000 ML IV SCH ×2 (03:34→17:02)
[2019-09-29] MEDS: CEFAZOLIN 2 GM in Premix Bag 1 BAG IVPB SCH ×3 (05:58→21:13)
[2019-09-29] MEDS: Lidocaine Patch Removal 1 EACH TOP SCH (06:19)
[2019-09-29] MEDS: HumaLOG 300 UNITS/3 ML VIAL SC PRN ×3 (06:23→20:20)
--- NOTE | 2019-09-29 07:37 | PRG ---
DATE OF SERVICE: 09/29/2019 Mr. Syed is 4 days out from a repeat lumbar laminectomy and extension of fusion. I had made arrangements with Dr. Hernandes for consideration of inpatient rehabilitation placement on Sunday. This was before the 3-day hospital stay, but due to COVID-19 concerns within our community, we were hoping the insurance company would wave that particular requirement to get him out of the acute care setting as quickly as possible. Unfortunately, Mr. Syed expressed a desire not to be treated with inpatient rehabilitation here, but rather to be transferred to [place]. Therefore, he has been here the entire weekend and has not made any progress towards discharge. He has been working with physical therapy. He is happy with the results of the operation. Among the electronically recorded vital signs, I do not see any fevers for his entire hospital stay. Blood pressures overnight have been in the 130s to 140s. His neurological examination is improved with better strength of the hip flexors and knee extensors and before his operation. This morning, Mr. Syed says he will consider transferring to inpatient rehabilitation here in [place]. I will reconnect with Dr. Hernandes. Regardless of the destination, the disposition should be for discharge today. Job ID: [id number]
[2019-09-29] MEDS: Folic Acid 1 MG TAB PO SCH (09:21)
[2019-09-29] MEDS: Carvedilol 3.125 MG TAB PO SCH ×2 (09:22→20:19)
[2019-09-29] MEDS: Amiodarone 200 MG TAB PO SCH (09:22)
--- NOTE | 2019-09-29 16:24 | PDOC.HOSPP ---
- Subjective Encounter Date: 09/29/19 Encounter Time: 16:23 Subjective: Kunal was seen today in follow-up post lumbar spinal surgery. He does not have any complaints. He notes improved pain control. - Objective Vital Signs & Weight: Vital Signs (12 hours) Temp Pulse Resp BP Pulse Ox 09/29/19 10:47 97.5 F L 63 18 113/48 L 98 09/29/19 08:00 97 09/29/19 07:21 98 F 62 18 134/67 97 Weight Weight 185 lb Most Recent Monitor Data Heart Rate from ECG 63 I&O: 09/28/19 09/29/19 09/30/19 06:59 06:59 06:59 Intake Total 1800 3690 Output Total 700 2825 Balance 1100 865 Result Diagrams: 09/28/19 19:36 09/28/19 07:59 Additional Labs: Accuchecks 09/29/19 09/29/19 09/29/19 16:05 10:51 06:05 POC Glucose 196 H 169 H 169 H 09/28/19 09/28/19 20:17 16:50 POC Glucose 189 H 182 H Hospitalist ROS - Medication Medications: Active Medications Generic Name Dose Route Start Last Admin Trade Name Freq PRN Reason Stop Dose Admin Hydrocodone Bitart/Acetaminophen 2 tab 09/26/19 10:53 09/29/19 14:15 [place] 10/325 PO 2 tab Q6H PRN Administration Pain Al Hydroxide/Mg Hydroxide 30 ml 09/25/19 15:47 09/26/19 21:42 Maalox PO 30 ml Q4H PRN Administration Heartburn or Indigestion Amiodarone HCl 200 mg 09/26/19 09:00 09/29/19 09:22 Cordarone PO 200 mg DAILY ANDRES Administration Aspirin 81 mg 09/25/19 21:00 09/28/19 21:17 Ecotrin PO 81 mg HS ANDRES Administration Carvedilol 3.125 mg 09/25/19 21:00 09/29/19 09:22 Coreg PO 3.125 mg BID ANDRES Administration Folic Acid 1 mg 09/28/19 09:00 09/29/19 09:21 Folvite PO 1 mg DAILY ANDRES Administration Sodium Chloride 1,000 mls @ 75 mls/hr 09/25/19 17:15 09/29/19 03:34 Normal Saline 0.9% IV Not Given .[id number] ANDRES Cefazolin Sodium/Dextrose 2 gm 50 mls @ 100 mls/hr 09/26/19 14:00 09/29/19 14 :46 / Device IVPB 50 mls Q8HR ANDRES Administration Insulin Human Lispro 0 units 09/25/19 20:01 09/29/19 06:23 Humalog SC 2 unit .MILD SLIDING SCALE PRN Administration Mild Correctional Scale Insulin Human Lispro 0 units 09/25/19 20:01 09/27/19 21:54 Humalog SC 2 unit .BEDTIME SLIDING SC PRN Administration Bedtime Correctional Scale Lidocaine 1 patch 09/27/19 18:00 09/28/19 17:07 Lidoderm 5% Patch TD 1 patch 1800 ANDRES Administration Miscellaneous Medication 1 each 09/28/19 06:00 09/29/19 06:19 Lidocaine Patch Removal TOP 1 each 0600 ANDRES Administration Ondansetron HCl 4 mg 09/25/19 15:47 09/28/19 04:13 Zofran IM 4 mg Q24H PRN Administration Nausea/Vomiting Pantoprazole Sodium 40 mg 09/26/19 09:00 09/29/19 09:22 Protonix PO 40 mg DAILY ANDRES Administration Sertraline HCl 25 mg 09/25/19 21:00 09/28/19 21:17 Zoloft PO 25 mg QPM ANDRES Administration Tramadol HCl 50 mg 09/25/19 15:47 09/27/19 05:20 Ultram PO 50 mg Q6H PRN Administration PAIN (1-3) - Exam Eye: PERRL Heart: RRR, no murmur, no gallops, no rubs, normal peripheral pulses Respiratory: CTAB, no wheezes, no rales, no ronchi, normal chest expansion, no tachypnea Gastrointestinal: soft, non-tender, non-distended, normal bowel sounds, no palpable masses, no hepatomegaly Extremities: no cyanosis, no edema Hosp A/P (1) HTN (hypertension) Code(s): I10 - ESSENTIAL (PRIMARY) HYPERTENSION Status: Chronic (2) MEI (obstructive sleep apnea) Code(s): G47.33 - OBSTRUCTIVE SLEEP APNEA (ADULT) (PEDIATRIC) Status: Chronic (3) Paroxysmal A-fib Code(s): I48.0 - PAROXYSMAL ATRIAL FIBRILLATION Status: Chronic (4) S/P lumbar laminectomy Code(s): Z98.890 - OTHER SPECIFIED POSTPROCEDURAL STATES Status: Acute (5) CAD (coronary artery disease) Code(s): I25.10 - ATHSCL HEART DISEASE OF [place] CORONARY ARTERY W/O ANG PCTRS Status: Chronic - Plan * Patient is clinically stable and participating in PT * HTN- blood pressure is stable * MEI- continue CPAP at night * AFIB- his heart rate is stable, and clinically the rate is regular-Continue Amiodarone and Carvedilol * Continue PT/OT * Awaiting Rehab transfer
[2019-09-29] MEDS: Lidocaine 5% Patch TD SCH (17:56)
[2019-09-29] MEDS: Aspirin 81 mg Enteric Coated Tablet PO SCH (20:19)
[2019-09-30] MEDS: Sodium Chloride 0.9% 1,000 ML IV SCH (05:14)
[2019-09-30] MEDS: HumaLOG 300 UNITS/3 ML VIAL SC PRN ×2 (05:31→11:48)
[2019-09-30] MEDS: CEFAZOLIN 2 GM in Premix Bag 1 BAG IVPB SCH ×2 (05:31→13:11)
[2019-09-30] MEDS: Lidocaine Patch Removal 1 EACH TOP SCH (05:32)
[2019-09-30] MEDS: Folic Acid 1 MG TAB PO SCH (08:07)
[2019-09-30] MEDS: Carvedilol 3.125 MG TAB PO SCH (08:07)
[2019-09-30] MEDS: Amiodarone 200 MG TAB PO SCH (08:07)
[2019-09-30] MEDS: HYDROcodone/Acetaminophen 10/325 mg Tablet PO PRN (08:11)
[2019-09-30 11:16] VITALS: BP 146/80; TEMP 98
[2019-09-30] MEDS ORDERED: HumaLOG 300 UNITS/3 ML VIAL SC PRN (12:29)
[2019-09-30] MEDS ORDERED: HYDROcodone/Acetaminophen 10/325 mg Tablet PO PRN ×2 (12:29→13:11)
[2019-09-30] MEDS ORDERED: Cyclobenzaprine 10 MG TAB PO PRN (12:29)
[2019-09-30] MEDS ORDERED: Gabapentin 300 MG CAP PO SCH (15:00)
[2019-09-30] MEDS ORDERED: metFORMIN 500 MG TAB PO SCH (17:00)
[2019-09-30] MEDS ORDERED: Alogliptin 6.25 MG TAB PO SCH (17:00)
[2019-09-30] MEDS ORDERED: Carvedilol 3.125 MG TAB PO SCH (21:00)
[2019-09-30] MEDS ORDERED: Lisinopril 5 MG TAB PO SCH (21:00)
--- NOTE | 2019-10-01 02:45 | DIS ---
DATE OF ADMISSION: 09/25/2019 DATE OF DISCHARGE: 09/30/2019 DISCHARGE DISPOSITION: Inpatient rehab. DISCHARGE DIAGNOSES: 1. Lumbar spinal stenosis. 2. Hypertension. 3. Diabetes mellitus. 4. Atrial fibrillation. DISCHARGE MEDICATIONS: Include: 1. Januvia metformin mg twice daily. 2. Zoloft 25 mg daily. 3. Omeprazole 40 mg daily. 4. Lisinopril 5 mg p.o. twice a day. 5. Hydrocodone acetaminophen 5/325 q.4 hours as needed. 6. Gabapentin 600 mg t.i.d. 7. Lasix 40 mg daily. 8. Flexeril 10 mg t.i.d. 9. Carvedilol 3.125 mg twice daily. 10. Amiodarone 200 mg daily. PROCEDURES DONE DURING THE ADMISSION: The patient had reopening of the lumbar incision, removal of spinal cord stimulator, and exploration of the previous arthrodesis at L4-L5, and repeat lumbar laminectomy. CODE STATUS: Full code. ALLERGIES: TO DIPHENHYDRAMINE, STATINS. HOSPITAL COURSE: Mr. Syed is a pleasant 79-year-old gentleman, who was admitted to the hospital after he was having leg weakness and his legs giving out as well as back pain. He has had previous lumbar laminectomies before. However, due to concern for worsening neurological decline, the decision was made to go ahead with a repeat surgery. The patient underwent a redo lumbar laminectomy. He had an uneventful postoperative course. Hospitalist Service was consulted for medical management of blood pressure, diabetes, and atrial fibrillation. All of these chronic conditions remain stable during his hospital stay. Once he was clinically stable, he was able to be discharged to the inpatient rehab facility. Job ID: [id number]
[2019-10-01] MEDS ORDERED: Furosemide 40 MG TAB PO SCH (09:00)
[2019-10-01] MEDS ORDERED: Amiodarone 200 MG TAB PO SCH (09:00)
== END 2019-09-30 15:50 | DRG 454 ==
LOC: SURG A 05:48 → SURG B 15:38
PROVIDERS: ADMIT Neurological Surgery; ATTEND Neurological Surgery
PROC: 0SG00AJ Fusion of Lumbar Vertebral Joint with Interbody Fusion Device, Posterior Approach, Anterior Column, Open Approach (ICD-10-PCS; principal; 2019-09-25)
PROC: 0SG1071 Fusion of 2 or more Lumbar Vertebral Joints with Autologous Tissue Substitute, Posterior Approach, Posterior Column, Open Approach (ICD-10-PCS; 2019-09-25)
PROC: 01NB0ZZ Release Lumbar Nerve, Open Approach (ICD-10-PCS; 2019-09-25)
PROC: 0SB20ZZ Excision of Lumbar Vertebral Disc, Open Approach (ICD-10-PCS; 2019-09-25)
DX: M48.062 Spinal stenosis, lumbar region with neurogenic claudication (principal); Z94.1 Heart transplant status; I42.9 Cardiomyopathy, unspecified; N17.9 Acute kidney failure, unspecified; E87.2 Acidosis; M43.16 Spondylolisthesis, lumbar region; M51.26 Other intervertebral disc displacement, lumbar region; I25.10 Atherosclerotic heart disease of native coronary artery without angina pectoris; E78.00 Pure hypercholesterolemia, unspecified; I48.0 Paroxysmal atrial fibrillation; E87.5 Hyperkalemia; D52.9 Folate deficiency anemia, unspecified; E11.22 Type 2 diabetes mellitus with diabetic chronic kidney disease; N18.3 Chronic kidney disease, stage 3 (moderate); I12.9 Hypertensive chronic kidney disease with stage 1 through stage 4 chronic kidney disease, or unspecified chronic kidney disease; D63.1 Anemia in chronic kidney disease; E11.65 Type 2 diabetes mellitus with hyperglycemia; Z96.651 Presence of right artificial knee joint; G47.33 Obstructive sleep apnea (adult) (pediatric); Z79.01 Long term (current) use of anticoagulants; Z88.8 Allergy status to other drugs, medicaments and biological substances; Z87.891 Personal history of nicotine dependence; Z79.4 Long term (current) use of insulin
CPT/HCPCS: 36415; 36416; 36430; 76000; 80048; 82607; 82746; 83735; 85025; 85027; 85610; 85730; 86850; 86900; 86901; C1713; C1768; J0171; J0690; J1885; J2001; J2250; J2370; J2405; J2704; J3010; J3370; P9016; S0020